=== PATIENT | female | born 1980 | race Caucasian/White ===

== ENCOUNTER 2016-04-11 17:37 | Emergency (ER) | payer OTHER ==
[~2016-04-11] VITALS: Ht 160 cm; Wt 52.4 kg
[~2016-04-11 17:37] MED LIST: AMBIEN10 MG PO; CALCIUM +D & M1 EAC1 PO; CALCIUM 500 +1 EACH PO; CELEBREX200 MG PO; CIPRO500 MG PO; CLONIDINE1 EACH TD; COUMADIN5 MG PO; CYANOCOBALAM1000 MCG PO; DESYREL12.5 MG; DILAUDID2 MG PO; DURAGESIC100 MCG TD; DURAGESIC25 MCG TD; DURAGESIC75 MCG TD; ETH-OXYDOS20 MG/1 ML PO; FENTANYL1 EAC4 TD; FLEXERIL10 MG PO; FLINTSTONES1 EACH PO; FLINTSTONES1 TABLET PO; FLUCONAZOLE200 MG PO; GABAPENTIN300 MG PO; GABAPENTIN800 MG PO; KONSYL PSYLLIU3.4 GM PO; LEVAQUIN750 MG PO; LEVO-T125 MCG PO; LORAZEPAM1 MG PO; LORTAB ELIXIR480 ML PO; LOVENOX40 MG/0.4 SC; Levothroid,Synthroid PO; Lomotil,Lonox PO; MARTINIC1 EACH PO; METHIMAZOLE5 MG PO; MORPHINE SULFAT15 MG PO; NEXIUM40 MG PO; NYSTOP60 GM; OXYCODONE H5 MG/5 ML PO; OXYCODONE HCL10 MG PO; OXYCONTIN10 MG PO; PERCOCET 5/31 TABLET PO; Potassium Chloride 1 PO; ROXICODONE5 MG/5 ML PO; SERTRALINE HCL50 MG; SYNTHROID125 MCG PO; TAPAZOLE5 MG PO; THERAGRAN1 TABLET PO; TPN IV; TRAMADOL HCL50 MG PO; TYLENOL EXTRA500 MG PO; Tylenol Liquid PO; Tylenol PO; VALIUM5 MG PO; VITAMIN B12-FO1 EACH PO; Vicodin,Lortab 5/500 PO; ZOFRAN ODT4 MG PO; ZOFRAN4 MG PO; ZOLPIDEM TARTRA10 MG PO; [UNRECOGNIZED DRUG - CODE] IV; [UNRECOGNIZED DRUG - OTHER] PO
[2016-04-11 22:20] LABS: INTER. NORMALIZED RATIO 2.3
[2016-04-11 22:41] LABS: CHLORIDE 109 mEq/L (99-109); POTASSIUM 3.3 mEq/L (3.7-5.4); SODIUM 142 mEq/L (136-147)
[2016-04-11 22:43] LABS: GLUCOSE 95 mg/dL (70-99)
[2016-04-11 22:44] LABS: ANION GAP 11 MEQ/L (2-14)
[2016-04-11 22:47] LABS: GFR ESTIMATE (CALCULATED) > 59 mL/min/
[2016-04-11 22:48] LABS: UREA NITROGEN (BUN) 6 mg/dL (9-23)
[2016-04-12] MEDS ORDERED: LOVENOX40 MG/0.4 SC (00:20)
[2016-04-12 00:31] VITALS: BP 128/73
== END 2016-04-12 00:46 | disposition home or self-care (01) ==
LOC: EME 17:37 → RME 17:37
PROVIDERS: Physician Assistant
DX: I82.621 Acute embolism and thrombosis of deep veins of right upper extremity (principal); Z86.718 Personal history of other venous thrombosis and embolism; Z88.6 Allergy status to analgesic agent
CPT/HCPCS: 80048; 85610; 93971; 99281; 99284; J1650

== ENCOUNTER 2016-04-14 17:51 | Inpatient (IN) | payer OTHER ==
[~2016-04-14] VITALS: Ht 160 cm; Wt 51.7 kg
[2016-04-14 19:48] LABS: HEMATOCRIT 28.4 % (36.0-46.0); MCH 28.6 PG (29.0-34.0); MCV 89.3 FL (83-99); MEAN PLAT.VOLUME 8.8 uM^3 (9.5-12.4); PLATELET COUNT 288 K/uL (156-360); RBC DIS.WIDTH-CV 14.5 % (11.8-14.6); RBC DIS.WIDTH-SD 45.1 % (39-53); RED BLOOD COUNT 3.18 M/uL (3.80-5.20)
[2016-04-14 19:59] LABS: CHLORIDE 109 mEq/L (99-109); SODIUM 143 mEq/L (136-147)
[2016-04-14 20:00] LABS: GLUCOSE 83 mg/dL (70-99)
[2016-04-14 20:02] LABS: ANION GAP 8 MEQ/L (2-14)
[2016-04-14 20:04] LABS: GFR ESTIMATE (CALCULATED) > 59 mL/min/
[2016-04-14 20:05] LABS: UREA NITROGEN (BUN) 9 mg/dL (9-23)
[2016-04-14 20:09] LABS: PROTHROMBIN TIME 46.8 (9.2-11.2)
[2016-04-14 20:10] LABS: INTER. NORMALIZED RATIO 4.4
[2016-04-14 20:24] LABS: WHITE BLOOD COUNT 6.7 K/uL (4.1-10.2)
[2016-04-14 21:50] LABS: C-REACTIVE PROTEIN 5.4 MG/L (0-10)
[2016-04-14] MEDS ORDERED: LOVENOX40 MG/0.4 SC (22:34)
[2016-04-14] MEDS ORDERED: COUMADIN5 MG PO (22:34)
[2016-04-14] MEDS ORDERED: AMBIEN10 MG PO (22:34)
[2016-04-15 07:41] LABS: HEMATOCRIT 26.8 % (36.0-46.0); MCH 28.6 PG (29.0-34.0); MCHC 31.7 G/DL (30.0-36.0); MCV 90.2 FL (83-99); MEAN PLAT.VOLUME 8.9 uM^3 (9.5-12.4); PLATELET COUNT 260 K/uL (156-360); RBC DIS.WIDTH-CV 14.6 % (11.8-14.6); RBC DIS.WIDTH-SD 45.4 % (39-53); RED BLOOD COUNT 2.97 M/uL (3.80-5.20); WHITE BLOOD COUNT 7.2 K/uL (4.1-10.2)
[2016-04-15 07:51] LABS: INTER. NORMALIZED RATIO 3.2
[2016-04-15 07:56] LABS: PROTHROMBIN TIME 33.5 (9.2-11.2)
[2016-04-15 08:13] LABS: ANION GAP 10 MEQ/L (2-14); CHLORIDE 107 MEQ/L (99-109); GFR ESTIMATE (CALCULATED) 54 mL/min/; GLUCOSE 84 mg/dL (70-99); POTASSIUM 3.5 MEQ/L (3.7-5.4); SAMPLE HEMOLYSIS CHECK 0; SAMPLE ICTERIC CHECK 0; SAMPLE LIPEMIA CHECK 0; SODIUM 142 MEQ/L (136-147); UREA NITROGEN (BUN) 9 mg/dL (9-23)
[2016-04-15 08:16] LABS: TROP-I INTERPRETATION NEGATIVE; TROPONIN-I < 0.01 ng/mL (0.0-0.30)
[2016-04-15 18:19] VITALS: BP 142/86
[2016-04-15 19:40] VITALS: BP 130/92
[2016-04-15 23:01] VITALS: BP 150/89
[2016-04-16] VITALS (7 sets, daily range): BP systolic 94–126; BP diastolic 57–82
[2016-04-16 08:03] LABS: INTER. NORMALIZED RATIO 2.1; PROTHROMBIN TIME 22.1 (9.2-11.2)
[2016-04-16 08:19] LABS: DIRECT BILIRUBIN 0.1 mg/dL (0.0-0.3); TOTAL BILIRUBIN 0.3 MG/DL (0.0-1.0)
[2016-04-16 08:24] LABS: ALKALINE PHOSPHATASE 62 IU/L (3-129)
[2016-04-16 08:25] LABS: EOSINOPHIL (%) 1.5 % (0-5); EOSINOPHIL COUNT 0.2 K/uL (0-0.3); HEMATOCRIT 24.8 % (36.0-46.0); IMMATURE GRANULOCYTE (%) 0.4 % (0.0-0.7); LYMPHOCYTE COUNT 0.6 K/uL (1.0-2.8); MCH 28.7 PG (29.0-34.0); MCHC 32.3 G/DL (30.0-36.0); MCV 88.9 FL (83-99); MONOCYTE (%) 5.6 % (3-12); MONOCYTE COUNT 0.6 K/uL (0-0.8); NEUTROPHIL COUNT 9.7 K/uL (1.8-6.4); RBC DIS.WIDTH-CV 15.3 % (11.8-14.6); RBC DIS.WIDTH-SD 49.1 % (39-53); RED BLOOD COUNT 2.79 M/uL (3.80-5.20)
[2016-04-16 08:37] LABS: WHITE BLOOD COUNT 11.2 K/uL (4.1-10.2)
[2016-04-16 10:07] LABS: ANION GAP 12 MEQ/L (2-14); CHLORIDE 108 MEQ/L (99-109); GFR ESTIMATE (CALCULATED) > 59 mL/min/; GLUCOSE 86 mg/dL (70-99); POTASSIUM 3.3 MEQ/L (3.7-5.4); SODIUM 141 MEQ/L (136-147); UREA NITROGEN (BUN) 8 mg/dL (9-23)
[2016-04-16 11:45] LABS: MEAN PLAT.VOLUME 9.9 uM^3 (9.5-12.4); PLAT.SUFFICIENCY ADEQUATE; PLATELET COUNT 204 K/uL (156-360); USER ID STC
[2016-04-17 03:00] VITALS: BP 146/77
[2016-04-17 07:48] LABS: INTER. NORMALIZED RATIO 1.7; PROTHROMBIN TIME 18.1 (9.2-11.2)
[2016-04-17 09:00] VITALS: BP 148/101
[2016-04-17 12:00] VITALS: BP 147/843
[2016-04-17 16:24] VITALS: BP 140/79
[2016-04-17 19:40] VITALS: BP 138/82
[2016-04-17 23:23] VITALS: BP 148/85
[2016-04-18 03:04] VITALS: BP 143/85
[2016-04-18 07:01] LABS: INTER. NORMALIZED RATIO 1.9; PROTHROMBIN TIME 19.9 (9.2-11.2)
[2016-04-18 07:57] VITALS: BP 129/74
[2016-04-18 12:53] VITALS: BP 133/70
[2016-04-18] MEDS ORDERED: MORPHINE SULFAT15 MG PO (13:12)
[2016-04-18] MEDS ORDERED: COUMADIN5 MG PO (13:12)
[2016-04-18] MEDS ORDERED: AUGMENTIN875 MG PO (13:12)
[2016-04-18 15:00] VITALS: BP 133/70
== END 2016-04-18 16:13 | disposition home or self-care (01) | DRG 314 ==
LOC: EME 17:51 → EDOF 23:04 → 5EAST 23:04
PROVIDERS: Internal Medicine; Internal Medicine Critical Care Medicine
DX: T80.211A Bloodstream infection due to central venous catheter, initial encounter (principal); A40.9 Streptococcal sepsis, unspecified; I26.90 Septic pulmonary embolism without acute cor pulmonale; I82.623 Acute embolism and thrombosis of deep veins of upper extremity, bilateral; I82.613 Acute embolism and thrombosis of superficial veins of upper extremity, bilateral; I82.723 Chronic embolism and thrombosis of deep veins of upper extremity, bilateral; T80.212A Local infection due to central venous catheter, initial encounter; T80.219A Unspecified infection due to central venous catheter, initial encounter; E83.51 Hypocalcemia; I80.8 Phlebitis and thrombophlebitis of other sites; R19.7 Diarrhea, unspecified; G89.4 Chronic pain syndrome; Z88.6 Allergy status to analgesic agent; Z98.84 Bariatric surgery status; Z88.5 Allergy status to narcotic agent; Z86.14 Personal history of Methicillin resistant Staphylococcus aureus infection; Z82.49 Family history of ischemic heart disease and other diseases of the circulatory system; Z83.3 Family history of diabetes mellitus; Z80.1 Family history of malignant neoplasm of trachea, bronchus and lung
CPT/HCPCS: 71020; 71275; 73200; 74176; 80048; 80076; 80202; 83605; 84484; 85025; 85027; 85610; 86140; 87040; 87801; 93306; 93971; 96365; 96366; 99281; 99284; 99285; J0692; J0696; J1170; J1580; J1650; J3370; J7030; J7050

== ENCOUNTER 2016-04-21 15:59 | Inpatient (IN) | payer OTHER ==
[~2016-04-21] VITALS: Ht 160 cm; Wt 50.0 kg
[~2016-04-21 15:59] MED LIST changes: +AUGMENTIN875 MG PO
[2016-04-21 17:23] LABS: BASOPHIL COUNT 0.1 K/uL (0-0.1); EOSINOPHIL (%) 2.8 % (0-5); EOSINOPHIL COUNT 0.2 K/uL (0-0.3); HEMATOCRIT 32.8 % (36.0-46.0); IMMATURE GRANULOCYTE (%) 0.1 % (0.0-0.7); IMMATURE GRANULOCYTE COUNT 0.1 K/uL; MCHC 31.7 G/DL (30.0-36.0); MCV 91.4 FL (83-99); MEAN PLAT.VOLUME 9.2 uM^3 (9.5-12.4); MONOCYTE COUNT 0.4 K/uL (0-0.8); NEUTROPHIL (%) 76.8 % (45-76); NEUTROPHIL COUNT 5.4 K/uL (1.8-6.4); PLATELET COUNT 310 K/uL (156-360); RBC DIS.WIDTH-CV 15.1 % (11.8-14.6); RED BLOOD COUNT 3.59 M/uL (3.80-5.20); WHITE BLOOD COUNT 7.1 K/uL (4.1-10.2)
[2016-04-21 17:30] LABS: CHLORIDE 114 mEq/L (99-109); SODIUM 140 mEq/L (136-147)
[2016-04-21 17:32] LABS: GLUCOSE 74 mg/dL (70-99); POTASSIUM 4.1 mEq/L (3.7-5.4)
[2016-04-21 17:33] LABS: INTER. NORMALIZED RATIO 2.9; PTT 36.6 (25-32)
[2016-04-21 17:34] LABS: ANION GAP 12 MEQ/L (2-14)
[2016-04-21 17:36] LABS: GFR ESTIMATE (CALCULATED) > 59 mL/min/
[2016-04-21 17:37] LABS: UREA NITROGEN (BUN) 14 mg/dL (9-23)
[2016-04-21 19:15] LABS: ADD MIUA? YES; BILIRUBIN NEGATIVE; BLOOD NEGATIVE; COLOR YELLOW ((YELLOW)); GLUCOSE (STRIP) NEGATIVE; KETONES NEGATIVE; LEUKOCYTES NEGATIVE; NITRITE NEGATIVE; PROTEIN (STRIP) 30; UROBILINOGEN 0.2 MG/DL (0.2-1.0)
[2016-04-21 19:59] LABS: CHLORIDE 116 mEq/L (99-109); POTASSIUM 3.8 mEq/L (3.7-5.4); SODIUM 140 mEq/L (136-147)
[2016-04-21 20:01] LABS: GLUCOSE 91 mg/dL (70-99)
[2016-04-21 20:03] LABS: ANION GAP 11 MEQ/L (2-14)
[2016-04-21 20:05] LABS: GFR ESTIMATE (CALCULATED) > 59 mL/min/
[2016-04-21 20:06] LABS: UREA NITROGEN (BUN) 15 mg/dL (9-23)
[2016-04-21 20:10] LABS: BACTERIA 3+; CASTS PRESENT /LPF; CRYSTALS PRESENT; EPITHELIAL CELLS 1+; HYALINE CASTS 0-5 /LPF; MUCUS RARE; RED BLOOD CELLS 0-5 /HPF (0-5); UCUL ADDED? YES
[2016-04-21 20:11] LABS: AMORPHOUS URATES CRYSTALS 2+
[2016-04-21] MEDS ORDERED: LEVO-T125 MCG PO (21:15)
[2016-04-21] MEDS ORDERED: DURAGESIC50 MCG TD (21:17)
[2016-04-22 00:44] LABS: C DIFF TOXIN NEGATIVE (NEGATIVE)
[2016-04-22 01:00] LABS: PROBE CHECK PASS; SPECIMEN PROCESSING CONTROL PASS
[2016-04-22 04:14] VITALS: BP 156/78
[2016-04-22 07:01] LABS: PROTHROMBIN TIME 31.1 (9.2-11.2)
[2016-04-22 07:09] LABS: HEMATOCRIT 26.6 % (36.0-46.0); MCH 28.4 PG (29.0-34.0); MCHC 31.2 G/DL (30.0-36.0); MCV 91.1 FL (83-99); RBC DIS.WIDTH-CV 15.3 % (11.8-14.6); RBC DIS.WIDTH-SD 51.3 % (39-53); RED BLOOD COUNT 2.92 M/uL (3.80-5.20)
[2016-04-22 07:19] LABS: WHITE BLOOD COUNT 4.9 K/uL (4.1-10.2)
[2016-04-22 07:24] LABS: ANION GAP 11 MEQ/L (2-14); CHLORIDE 116 MEQ/L (99-109); GFR ESTIMATE (CALCULATED) > 59 mL/min/; GLUCOSE 83 mg/dL (70-99); POTASSIUM 3.7 MEQ/L (3.7-5.4); SAMPLE HEMOLYSIS CHECK 0; SAMPLE ICTERIC CHECK 0; SAMPLE LIPEMIA CHECK 0; SODIUM 139 MEQ/L (136-147); UREA NITROGEN (BUN) 13 mg/dL (9-23)
[2016-04-22 08:25] VITALS: BP 139/67
[2016-04-22 08:29] LABS: MEAN PLAT.VOLUME 9.4 uM^3 (9.5-12.4)
[2016-04-22 08:42] LABS: PLATELET COUNT 213 K/uL (156-360)
[2016-04-22 12:50] VITALS: BP 127/66
[2016-04-22 17:13] VITALS: BP 159/78
[2016-04-22 19:35] VITALS: BP 161/76
[2016-04-23 00:20] VITALS: BP 125/70
[2016-04-23 05:29] LABS: INTER. NORMALIZED RATIO 3.6; PROTHROMBIN TIME 38.1 (9.2-11.2)
[2016-04-23 08:10] VITALS: BP 148/72
[2016-04-23 10:49] LABS: HEMATOCRIT 28.6 % (36.0-46.0); MCH 28.1 PG (29.0-34.0); MCHC 30.8 G/DL (30.0-36.0); MCV 91.4 FL (83-99); MEAN PLAT.VOLUME 9.7 uM^3 (9.5-12.4); PLATELET COUNT 210 K/uL (156-360); RBC DIS.WIDTH-CV 15.3 % (11.8-14.6); RBC DIS.WIDTH-SD 51.1 % (39-53); RED BLOOD COUNT 3.13 M/uL (3.80-5.20)
[2016-04-23 11:18] LABS: ANION GAP 9 MEQ/L (2-14); CHLORIDE 117 MEQ/L (99-109); GFR ESTIMATE (CALCULATED) > 59 mL/min/; GLUCOSE 76 mg/dL (70-99); POTASSIUM 3.4 MEQ/L (3.7-5.4); SAMPLE HEMOLYSIS CHECK 0; SAMPLE ICTERIC CHECK 0; SAMPLE LIPEMIA CHECK 0; SODIUM 139 MEQ/L (136-147); UREA NITROGEN (BUN) 9 mg/dL (9-23)
[2016-04-23 11:32] VITALS: BP 135/67
[2016-04-23 15:46] LABS: INTERNAL CONTROL VALID? YES
[2016-04-23 16:15] VITALS: BP 168/82
[2016-04-23 20:00] VITALS: BP 157/72
[2016-04-24] VITALS (8 sets, daily range): BP systolic 129–171; BP diastolic 56–90
[2016-04-24 07:33] LABS: INTER. NORMALIZED RATIO 3.4; PROTHROMBIN TIME 35.5 (9.2-11.2)
[2016-04-24 07:41] LABS: ANION GAP 9 MEQ/L (2-14); CHLORIDE 113 MEQ/L (99-109); GFR ESTIMATE (CALCULATED) > 59 mL/min/; SAMPLE HEMOLYSIS CHECK 0; SAMPLE ICTERIC CHECK 0; SAMPLE LIPEMIA CHECK 0; SODIUM 139 MEQ/L (136-147); UREA NITROGEN (BUN) 8 mg/dL (9-23)
[2016-04-24 07:53] LABS: GLUCOSE 101 mg/dL (70-99); POTASSIUM 2.7 MEQ/L (3.7-5.4)
[2016-04-25 04:00] VITALS: BP 129/71
[2016-04-25 07:28] VITALS: BP 138/67
[2016-04-25 07:38] LABS: PROTHROMBIN TIME 31.2 (9.2-11.2)
[2016-04-25 07:43] LABS: ANION GAP 8 MEQ/L (2-14); CHLORIDE 109 MEQ/L (99-109); GFR ESTIMATE (CALCULATED) > 59 mL/min/; GLUCOSE 92 mg/dL (70-99); POTASSIUM 2.6 MEQ/L (3.7-5.4); SAMPLE HEMOLYSIS CHECK 0; SAMPLE ICTERIC CHECK 0; SAMPLE LIPEMIA CHECK 0; SODIUM 140 MEQ/L (136-147); UREA NITROGEN (BUN) 9 mg/dL (9-23)
[2016-04-25 07:44] LABS: BASOPHIL COUNT 0.1 K/uL (0-0.1); EOSINOPHIL (%) 3.4 % (0-5); EOSINOPHIL COUNT 0.2 K/uL (0-0.3); HEMATOCRIT 27.4 % (36.0-46.0); IMMATURE GRANULOCYTE (%) 0.4 % (0.0-0.7); LYMPHOCYTE COUNT 1.1 K/uL (1.0-2.8); MCH 28.1 PG (29.0-34.0); MCHC 32.8 G/DL (30.0-36.0); MEAN PLAT.VOLUME 9.2 uM^3 (9.5-12.4); MONOCYTE (%) 9.6 % (3-12); MONOCYTE COUNT 0.5 K/uL (0-0.8); NEUTROPHIL COUNT 3.2 K/uL (1.8-6.4); PLATELET COUNT 201 K/uL (156-360); RBC DIS.WIDTH-CV 14.7 % (11.8-14.6); RBC DIS.WIDTH-SD 45.7 % (39-53)
[2016-04-25 07:50] LABS: MCV 85.6 FL (83-99)
[2016-04-25 10:51] LABS: ALKALINE PHOSPHATASE 63 IU/L (3-129); DIRECT BILIRUBIN 0.1 mg/dL (0.0-0.3); TOTAL BILIRUBIN 0.3 MG/DL (0.0-1.0)
[2016-04-25 10:52] LABS: MAGNESIUM 0.9 mg/dl (1.3-2.7)
[2016-04-25 11:25] VITALS: BP 129/74
[2016-04-25 15:30] VITALS: BP 123/75
[2016-04-25 19:30] VITALS: BP 136/64
[2016-04-25 22:35] LABS: ANION GAP 7 MEQ/L (2-14); CHLORIDE 108 MEQ/L (99-109); GFR ESTIMATE (CALCULATED) > 59 mL/min/; GLUCOSE 85 mg/dL (70-99); SAMPLE HEMOLYSIS CHECK 0; SAMPLE ICTERIC CHECK 0; SAMPLE LIPEMIA CHECK 0; SODIUM 139 MEQ/L (136-147); UREA NITROGEN (BUN) 12 mg/dL (9-23)
[2016-04-25 22:39] LABS: POTASSIUM 3.4 MEQ/L (3.7-5.4)
[2016-04-25 23:11] VITALS: BP 126/67
[2016-04-26 04:55] VITALS: BP 122/56
[2016-04-26 07:34] LABS: EOSINOPHIL (%) 4.5 % (0-5); EOSINOPHIL COUNT 0.2 K/uL (0-0.3); IMMATURE GRANULOCYTE (%) 0.2 % (0.0-0.7); LYMPHOCYTE COUNT 0.9 K/uL (1.0-2.8); MCH 28.4 PG (29.0-34.0); MCHC 32.5 G/DL (30.0-36.0); MCV 87.5 FL (83-99); MEAN PLAT.VOLUME 9.4 uM^3 (9.5-12.4); MONOCYTE (%) 10.8 % (3-12); MONOCYTE COUNT 0.5 K/uL (0-0.8); NEUTROPHIL (%) 61.7 % (45-76); NEUTROPHIL COUNT 2.6 K/uL (1.8-6.4); PLATELET COUNT 231 K/uL (156-360); RBC DIS.WIDTH-CV 15.2 % (11.8-14.6); WHITE BLOOD COUNT 4.3 K/uL (4.1-10.2)
[2016-04-26 07:46] LABS: INTER. NORMALIZED RATIO 2.2; PROTHROMBIN TIME 22.6 (9.2-11.2)
[2016-04-26 08:05] VITALS: BP 150/71
[2016-04-26 08:09] LABS: ALKALINE PHOSPHATASE 69 IU/L (3-129); ANION GAP 9 MEQ/L (2-14); CHLORIDE 111 MEQ/L (99-109); GFR ESTIMATE (CALCULATED) > 59 mL/min/; GLUCOSE 90 mg/dL (70-99); POTASSIUM 3.9 MEQ/L (3.7-5.4); SAMPLE HEMOLYSIS CHECK 0; SAMPLE ICTERIC CHECK 0; SAMPLE LIPEMIA CHECK 0; SODIUM 142 MEQ/L (136-147); TOTAL BILIRUBIN 0.3 MG/DL (0.0-1.0); UREA NITROGEN (BUN) 12 mg/dL (9-23)
[2016-04-26 08:10] LABS: MAGNESIUM 1.6 mg/dl (1.3-2.7)
[2016-04-26 10:46] LABS: ABSOLUTE RETICULOCYTE CT. 0.06 M/uL (0.02-0.08); IMM.RETIC FRACTION 7.3 % (3-19); RETICULOCYTE COUNT 1.8 % (0.5-1.8)
[2016-04-26 11:09] LABS: IRON 29 MCG/DL (35-150)
[2016-04-26 12:45] VITALS: BP 151/74
[2016-04-26 13:27] LABS: FERRITIN 175 NG/ML (10-291)
[2016-04-26] MEDS ORDERED: PEN-VEE K,VEET500 MG PO (14:09)
[2016-04-26] MEDS ORDERED: LOPERAMIDE2 MG PO (14:10)
[2016-04-26] MEDS ORDERED: KONSYL PSYLLIU3.4 GM PO (14:11)
[2016-04-26] MEDS ORDERED: Vitamin B-12 SL (14:11)
[2016-04-26] MEDS ORDERED: FENTANYL1 EAC2 TD (14:11)
== END 2016-04-26 15:51 | disposition home or self-care (01) | DRG 640 ==
LOC: EME 15:59 → EDOF 22:01 → 4SOUTH 22:01 → EDOF 22:01 → 4SOUTH 04-22 04:06 → 2EAST 04-22 11:07 → 4SOUTH 04-22 11:07 → 2EAST 04-24 21:00
PROVIDERS: Emergency Medicine; Hospitalist; Internal Medicine; Internal Medicine Nephrology; Student in an Organized Health Care Education/Training Program
DX: E87.2 Acidosis (principal); I33.0 Acute and subacute infective endocarditis; K52.1 Toxic gastroenteritis and colitis; I76 Septic arterial embolism; E46 Unspecified protein-calorie malnutrition; Z68.1 Body mass index [BMI] 19.9 or less, adult; E03.9 Hypothyroidism, unspecified; E87.6 Hypokalemia; T36.0X5A Adverse effect of penicillins, initial encounter; Z79.01 Long term (current) use of anticoagulants; Z98.84 Bariatric surgery status; E83.42 Hypomagnesemia; G89.4 Chronic pain syndrome; Z88.5 Allergy status to narcotic agent; D64.9 Anemia, unspecified; Z88.6 Allergy status to analgesic agent; Z82.49 Family history of ischemic heart disease and other diseases of the circulatory system; Z83.3 Family history of diabetes mellitus; Z80.1 Family history of malignant neoplasm of trachea, bronchus and lung
CPT/HCPCS: 36600; 71020; 74176; 80048; 80048 91; 80053; 80069; 80076; 81003; 82436; 82607; 82728; 82746; 82803; 83540; 83605; 83630; 83735; 84133; 84300; 84466; 85025; 85027; 85045; 85610; 85730; 87086; 87177; 87493; 87506; 99281; 99285; G0378; J0696; J2270; J3475; J3480; J7030; J7050; J7060; J7070; J7120

== ENCOUNTER 2016-04-30 10:39 | Emergency (ER) | payer OTHER ==
[~2016-04-30] VITALS: Ht 160 cm; Wt 45.9 kg
[~2016-04-30 10:39] MED LIST changes: +DURAGESIC50 MCG TD; +FENTANYL1 EAC2 TD; +LOPERAMIDE2 MG PO; +PEN-VEE K,VEET500 MG PO; +Vitamin B-12 SL
[2016-04-30 11:16] LABS: HEMATOCRIT 36.5 % (36.0-46.0); MCH 28.8 PG (29.0-34.0); MCHC 33.2 G/DL (30.0-36.0); MCV 86.9 FL (83-99); MEAN PLAT.VOLUME 8.6 uM^3 (9.5-12.4); PLATELET COUNT 268 K/uL (156-360); RBC DIS.WIDTH-SD 47.2 % (39-53); WHITE BLOOD COUNT 5.3 K/uL (4.1-10.2)
[2016-04-30 11:31] LABS: CHLORIDE 106 mEq/L (99-109); POTASSIUM 3.4 mEq/L (3.7-5.4); SODIUM 138 mEq/L (136-147)
[2016-04-30 11:33] LABS: GLUCOSE 86 mg/dL (70-99)
[2016-04-30 11:35] LABS: ANION GAP 14 MEQ/L (2-14)
[2016-04-30 11:43] LABS: GFR ESTIMATE (CALCULATED) 54 mL/min/; UREA NITROGEN (BUN) 21 mg/dL (9-23)
[2016-04-30 11:52] LABS: D-DIMER ELISA 0.42 mg/L FEU (< 0.57); INTER. NORMALIZED RATIO 1.7; PTT 34.1 (25-32)
[2016-04-30 12:01] LABS: TROP-I INTERPRETATION NEGATIVE; TROPONIN-I < 0.01 ng/mL (0.0-0.30)
[2016-04-30 12:47] VITALS: BP 132/85
== END 2016-04-30 13:04 | disposition home or self-care (01) ==
LOC: EME 10:39
PROVIDERS: Emergency Medicine
DX: R07.9 Chest pain, unspecified (principal); J06.9 Acute upper respiratory infection, unspecified; E03.9 Hypothyroidism, unspecified; Z98.84 Bariatric surgery status
CPT/HCPCS: 71020; 80048; 84484; 85027; 85379; 85610; 85730; 93005; 99281; 99284

== ENCOUNTER 2016-05-01 04:57 | Emergency (ER) | payer OTHER ==
[~2016-05-01] VITALS: Ht 160 cm; Wt 48.4 kg
[2016-05-01 06:28] LABS: HEMATOCRIT 31.6 % (36.0-46.0); MCH 29.1 PG (29.0-34.0); MCHC 33.5 G/DL (30.0-36.0); MCV 86.8 FL (83-99); MEAN PLAT.VOLUME 8.8 uM^3 (9.5-12.4); PLATELET COUNT 285 K/uL (156-360); RBC DIS.WIDTH-CV 14.9 % (11.8-14.6); RBC DIS.WIDTH-SD 45.7 % (39-53); RED BLOOD COUNT 3.64 M/uL (3.80-5.20); WHITE BLOOD COUNT 6.3 K/uL (4.1-10.2)
[2016-05-01 06:40] LABS: CHLORIDE 113 mEq/L (99-109); POTASSIUM 3.2 mEq/L (3.7-5.4); SODIUM 138 mEq/L (136-147)
[2016-05-01 06:43] LABS: GLUCOSE 92 mg/dL (70-99)
[2016-05-01 06:44] LABS: ANION GAP 9 MEQ/L (2-14); TOTAL BILIRUBIN 0.5 mg/dL (0.0-1.0)
[2016-05-01 06:46] LABS: ALKALINE PHOSPHATASE 68 IU/L (3-129); GFR ESTIMATE (CALCULATED) > 59 mL/min/
[2016-05-01 06:47] LABS: UREA NITROGEN (BUN) 17 mg/dL (9-23)
[2016-05-01 06:50] LABS: CREATINE KINASE 25 IU/L (1-294); LIPASE 41 U/L (1.0-51.0); TOTAL CK 25 IU/L (1-294)
[2016-05-01 06:52] LABS: BILIRUBIN NEGATIVE; COLOR YELLOW ((YELLOW)); GLUCOSE (STRIP) NEGATIVE; KETONES NEGATIVE; LEUKOCYTES NEGATIVE; NITRITE NEGATIVE; PROTEIN (STRIP) 30; SPECIFIC GRAVITY 1.024 (1.000-1.030); UROBILINOGEN 0.2 MG/DL (0.2-1.0)
[2016-05-01 06:53] LABS: ADD MIUA? NO; BLOOD NEGATIVE; UCUL ADDED? NO
[2016-05-01 06:56] LABS: CK-MB 0.9 ng/mL (0.0-4.9)
[2016-05-01 10:08] VITALS: BP 122/88
== END 2016-05-01 10:43 | disposition home or self-care (01) ==
LOC: EME 04:57
PROVIDERS: Emergency Medicine
DX: R11.10 Vomiting, unspecified (principal); R19.7 Diarrhea, unspecified; E87.6 Hypokalemia; E03.9 Hypothyroidism, unspecified; Z98.84 Bariatric surgery status
CPT/HCPCS: 74022; 80053; 81003; 82550; 82553; 82803; 83690; 85027; 99281; 99285; J2270; J2405; J7030

== ENCOUNTER 2016-05-08 13:07 | Emergency (ER) | payer OTHER ==
[~2016-05-08] VITALS: Ht 160 cm; Wt 44.3 kg
[2016-05-08 15:00] LABS: MCH 28.5 PG (29.0-34.0); MCHC 33.8 G/DL (30.0-36.0); MCV 84.2 FL (83-99); MEAN PLAT.VOLUME 9.4 uM^3 (9.5-12.4); PLATELET COUNT 297 K/uL (156-360); RBC DIS.WIDTH-CV 14.9 % (11.8-14.6); RBC DIS.WIDTH-SD 45.1 % (39-53); RED BLOOD COUNT 4.04 M/uL (3.80-5.20); WHITE BLOOD COUNT 7.4 K/uL (4.1-10.2)
[2016-05-08 15:13] LABS: INTER. NORMALIZED RATIO 1.2; PTT 29.4 (25-32)
[2016-05-08 15:22] LABS: CHLORIDE 112 mEq/L (99-109); POTASSIUM 4.7 mEq/L (3.7-5.4); SODIUM 135 mEq/L (136-147)
[2016-05-08 15:24] LABS: GLUCOSE 94 mg/dL (70-99); TROP-I INTERPRETATION NEGATIVE; TROPONIN-I < 0.01 ng/mL (0.0-0.30)
[2016-05-08 15:26] LABS: ANION GAP 9 MEQ/L (2-14); TOTAL BILIRUBIN 0.4 mg/dL (0.0-1.0)
[2016-05-08 15:28] LABS: ALKALINE PHOSPHATASE 74 IU/L (3-129); GFR ESTIMATE (CALCULATED) 54 mL/min/
[2016-05-08 15:29] LABS: UREA NITROGEN (BUN) 15 mg/dL (9-23)
[2016-05-08 15:36] LABS: QUANTITATIVE HCG < 4.0 MIU/ML
[2016-05-08 17:28] LABS: D-DIMER ELISA 0.56 mg/L FEU (< 0.57)
[2016-05-08 20:34] LABS: CHLORIDE 114 mEq/L (99-109); SODIUM 138 mEq/L (136-147)
[2016-05-08 20:36] LABS: GLUCOSE 106 mg/dL (70-99)
[2016-05-08 20:38] LABS: ANION GAP 9 MEQ/L (2-14)
[2016-05-08 20:40] LABS: GFR ESTIMATE (CALCULATED) > 59 mL/min/
[2016-05-08 20:41] LABS: UREA NITROGEN (BUN) 14 mg/dL (9-23)
[2016-05-08 21:30] VITALS: BP 144/97
== END 2016-05-08 21:42 | disposition home or self-care (01) ==
LOC: EME 13:07
PROVIDERS: Emergency Medicine; Nurse Practitioner Family
DX: R07.89 Other chest pain (principal); G89.4 Chronic pain syndrome; E03.9 Hypothyroidism, unspecified; Z98.84 Bariatric surgery status
CPT/HCPCS: 71020; 80048 91; 80053; 81003; 84484; 84702; 85027; 85379; 85610; 85730; 93005; 99281; 99285; J2270; J2405; J7030

== ENCOUNTER 2016-05-14 14:54 | Inpatient (IN) | payer OTHER ==
[~2016-05-14] VITALS: Ht 160 cm; Wt 45.2 kg
[2016-05-14 15:34] LABS: BASOPHIL COUNT 0.1 K/uL (0-0.1); EOSINOPHIL (%) 0.6 % (0-5); EOSINOPHIL COUNT 0.1 K/uL (0-0.3); HEMATOCRIT 36.5 % (36.0-46.0); IMMATURE GRANULOCYTE (%) 0.2 % (0.0-0.7); IMMATURE GRANULOCYTE COUNT 0.2 K/uL; LYMPHOCYTE COUNT 1.1 K/uL (1.0-2.8); MCH 28.3 PG (29.0-34.0); MCHC 33.2 G/DL (30.0-36.0); MCV 85.3 FL (83-99); MEAN PLAT.VOLUME 8.8 uM^3 (9.5-12.4); MONOCYTE (%) 3.1 % (3-12); MONOCYTE COUNT 0.3 K/uL (0-0.8); NEUTROPHIL (%) 84.7 % (45-76); NEUTROPHIL COUNT 8.9 K/uL (1.8-6.4); PLATELET COUNT 270 K/uL (156-360); RBC DIS.WIDTH-CV 14.9 % (11.8-14.6); RBC DIS.WIDTH-SD 45.1 % (39-53); RED BLOOD COUNT 4.28 M/uL (3.80-5.20)
[2016-05-14 15:41] LABS: CHLORIDE 116 mEq/L (99-109); POTASSIUM 2.7 mEq/L (3.7-5.4); SODIUM 139 mEq/L (136-147)
[2016-05-14 15:43] LABS: GLUCOSE 116 mg/dL (70-99); WHITE BLOOD COUNT 10.5 K/uL (4.1-10.2)
[2016-05-14 15:44] LABS: ANION GAP 10 MEQ/L (2-14)
[2016-05-14 15:46] LABS: TOTAL BILIRUBIN 0.3 mg/dL (0.0-1.0)
[2016-05-14 15:47] LABS: ALKALINE PHOSPHATASE 79 IU/L (3-129); GFR ESTIMATE (CALCULATED) 45 mL/min/
[2016-05-14 15:50] LABS: LIPASE 41 U/L (1.0-51.0)
[2016-05-14 15:53] LABS: UREA NITROGEN (BUN) 23 mg/dL (9-23)
[2016-05-14 15:56] LABS: QUANTITATIVE HCG < 4.0 MIU/ML
[2016-05-14 16:10] LABS: ADD MIUA? YES; BILIRUBIN NEGATIVE; BLOOD SMALL; COLOR YELLOW ((YELLOW)); GLUCOSE (STRIP) NEGATIVE; KETONES NEGATIVE; LEUKOCYTES NEGATIVE; NITRITE NEGATIVE; PROTEIN (STRIP) 100; SPECIFIC GRAVITY 1.028 (1.000-1.030); UROBILINOGEN 0.2 MG/DL (0.2-1.0)
[2016-05-14 16:40] LABS: AMORPHOUS URATES CRYSTALS 2+; BACTERIA RARE /HPF; CASTS NONE SEEN /LPF; CRYSTALS PRESENT; EPITHELIAL CELLS 1+ /HPF; MUCUS NONE SEEN /LPF; RED BLOOD CELLS NONE SEEN /HPF (0-5); WHITE BLOOD CELLS NONE SEEN /HPF (0-5)
[2016-05-14 16:41] LABS: CALCIUM OXALATE CRYSTALS RARE /HPF
[2016-05-14] MEDS ORDERED: CYANOCOBALAM1000 MCG PO (19:10)
[2016-05-14] MEDS ORDERED: QUESTRAN PACKET4 GM PO (19:10)
[2016-05-14 21:32] LABS: INTER. NORMALIZED RATIO 1.2; PROTHROMBIN TIME 12.4 (9.2-11.2)
[2016-05-14 21:33] VITALS: BP 149/88
[2016-05-14 23:10] VITALS: BP 131/85
[2016-05-15 03:40] VITALS: BP 121/71
[2016-05-15 07:20] LABS: HEMATOCRIT 30.9 % (36.0-46.0); MCH 28.2 PG (29.0-34.0); MCHC 32.7 G/DL (30.0-36.0); MCV 86.3 FL (83-99); RBC DIS.WIDTH-CV 15.2 % (11.8-14.6); RED BLOOD COUNT 3.58 M/uL (3.80-5.20); WHITE BLOOD COUNT 10.2 K/uL (4.1-10.2)
[2016-05-15 07:44] LABS: ALKALINE PHOSPHATASE 56 IU/L (3-129); ANION GAP 11 MEQ/L (2-14); CHLORIDE 113 MEQ/L (99-109); GFR ESTIMATE (CALCULATED) > 59 mL/min/; GLUCOSE 138 mg/dL (70-99); SAMPLE HEMOLYSIS CHECK 0; SAMPLE ICTERIC CHECK 0; SAMPLE LIPEMIA CHECK 0; SODIUM 137 MEQ/L (136-147); TOTAL BILIRUBIN 0.2 MG/DL (0.0-1.0); UREA NITROGEN (BUN) 15 mg/dL (9-23)
[2016-05-15 07:48] LABS: POTASSIUM 3.3 MEQ/L (3.7-5.4)
[2016-05-15 08:00] VITALS: BP 121/77
[2016-05-15 08:07] LABS: MEAN PLAT.VOLUME 9.4 uM^3 (9.5-12.4)
[2016-05-15 08:08] LABS: PLATELET COUNT 186 K/uL (156-360)
[2016-05-15 08:15] LABS: INTERNAL CONTROL VALID? YES
[2016-05-15 08:30] LABS: MAGNESIUM 1.1 mg/dl (1.3-2.7)
[2016-05-15 08:32] LABS: C DIFF TOXIN NEGATIVE (NEGATIVE)
[2016-05-15 08:33] LABS: PROBE CHECK PASS; SPECIMEN PROCESSING CONTROL PASS
[2016-05-15 10:00] LABS: INTER. NORMALIZED RATIO 1.3; PROTHROMBIN TIME 13.2 (9.2-11.2)
[2016-05-15 12:00] VITALS: BP 134/71
[2016-05-15 13:11] LABS: ANION GAP 12 MEQ/L (2-14); CHLORIDE 114 MEQ/L (99-109); GFR ESTIMATE (CALCULATED) > 59 mL/min/; GLUCOSE 146 mg/dL (70-99); POTASSIUM 3.3 MEQ/L (3.7-5.4); SAMPLE HEMOLYSIS CHECK 0; SAMPLE ICTERIC CHECK 0; SAMPLE LIPEMIA CHECK 0; SODIUM 139 MEQ/L (136-147); UREA NITROGEN (BUN) 15 mg/dL (9-23)
[2016-05-15 16:00] VITALS: BP 134/71
[2016-05-15 18:36] LABS: CHLORIDE 117 mEq/L (99-109); POTASSIUM 2.9 mEq/L (3.7-5.4); SODIUM 140 mEq/L (136-147)
[2016-05-15 18:38] LABS: GLUCOSE 151 mg/dL (70-99)
[2016-05-15 18:39] LABS: ANION GAP 7 MEQ/L (2-14)
[2016-05-15 18:41] LABS: GFR ESTIMATE (CALCULATED) 50 mL/min/
[2016-05-15 18:42] LABS: UREA NITROGEN (BUN) 13 mg/dL (9-23)
[2016-05-15 19:19] VITALS: BP 114/60
[2016-05-15 23:20] VITALS: BP 128/78
[2016-05-16 03:24] VITALS: BP 131/85
[2016-05-16 07:30] VITALS: BP 131/83
[2016-05-16 07:39] LABS: EOSINOPHIL (%) 0.3 % (0-5); IMMATURE GRANULOCYTE (%) 0.3 % (0.0-0.7); LYMPHOCYTE COUNT 1.6 K/uL (1.0-2.8); MCH 28.3 PG (29.0-34.0); MCHC 33.1 G/DL (30.0-36.0); MCV 85.5 FL (83-99); MEAN PLAT.VOLUME 9.5 uM^3 (9.5-12.4); MONOCYTE (%) 5.1 % (3-12); MONOCYTE COUNT 0.5 K/uL (0-0.8); NEUTROPHIL (%) 77.9 % (45-76); NEUTROPHIL COUNT 7.9 K/uL (1.8-6.4); PLATELET COUNT 174 K/uL (156-360); RBC DIS.WIDTH-CV 15.4 % (11.8-14.6); RBC DIS.WIDTH-SD 47.5 % (39-53); RED BLOOD COUNT 3.39 M/uL (3.80-5.20); WHITE BLOOD COUNT 10.2 K/uL (4.1-10.2)
[2016-05-16 07:52] LABS: PROTHROMBIN TIME 20.7 (9.2-11.2)
[2016-05-16 08:37] LABS: ANION GAP 7 MEQ/L (2-14); CHLORIDE 108 MEQ/L (99-109); GFR ESTIMATE (CALCULATED) > 59 mL/min/; GLUCOSE 83 mg/dL (70-99); POTASSIUM 2.7 MEQ/L (3.7-5.4); SAMPLE HEMOLYSIS CHECK 0; SAMPLE ICTERIC CHECK 0; SAMPLE LIPEMIA CHECK 0; SODIUM 140 MEQ/L (136-147); UREA NITROGEN (BUN) 11 mg/dL (9-23)
[2016-05-16 08:53] LABS: MAGNESIUM 1.2 mg/dl (1.3-2.7)
[2016-05-16 11:46] VITALS: BP 140/74
[2016-05-16 15:30] VITALS: BP 122/76
[2016-05-16 19:04] VITALS: BP 135/65
[2016-05-16 23:54] VITALS: BP 131/79
[2016-05-17 03:44] VITALS: BP 118/79
[2016-05-17 07:14] LABS: PROTHROMBIN TIME 20.9 (9.2-11.2)
[2016-05-17 07:18] LABS: CARBON DIOXIDE (BICARBONATE) 30.4 MEQ/L (20-31)
[2016-05-17 07:37] LABS: ANION GAP 7 MEQ/L (2-14); CHLORIDE 106 MEQ/L (99-109); GFR ESTIMATE (CALCULATED) 54 mL/min/; GLUCOSE 82 mg/dL (70-99); POTASSIUM 3.1 MEQ/L (3.7-5.4); SAMPLE HEMOLYSIS CHECK 0; SAMPLE ICTERIC CHECK 0; SAMPLE LIPEMIA CHECK 0; SODIUM 139 MEQ/L (136-147); UREA NITROGEN (BUN) 8 mg/dL (9-23)
[2016-05-17 08:00] VITALS: BP 143/81
[2016-05-17 12:00] VITALS: BP 136/76
[2016-05-17 16:00] VITALS: BP 152/93
[2016-05-17 19:21] VITALS: BP 142/74
[2016-05-17 23:11] VITALS: BP 136/68
[2016-05-18 03:56] VITALS: BP 110/72
[2016-05-18 07:10] VITALS: BP 134/80
[2016-05-18 07:26] LABS: PROTHROMBIN TIME 20.9 (9.2-11.2)
[2016-05-18 07:49] LABS: ANION GAP 7 MEQ/L (2-14); CHLORIDE 106 MEQ/L (99-109); GFR ESTIMATE (CALCULATED) > 59 mL/min/; GLUCOSE 83 mg/dL (70-99); POTASSIUM 3.7 MEQ/L (3.7-5.4); SAMPLE HEMOLYSIS CHECK 0; SAMPLE ICTERIC CHECK 0; SAMPLE LIPEMIA CHECK 0; SODIUM 139 MEQ/L (136-147); UREA NITROGEN (BUN) 8 mg/dL (9-23)
[2016-05-18 07:50] LABS: MAGNESIUM 1.6 mg/dl (1.3-2.7)
[2016-05-18 09:20] VITALS: BP 140/87
[2016-05-18] MEDS ORDERED: NABI650T PO (14:51)
[2016-05-18] MEDS ORDERED: K-DUR20 MEQ PO (14:52)
[2016-05-18] MEDS ORDERED: ERGOCALCIF50000 UNIT PO ×2 (15:00→16:12)
[2016-05-18 15:28] VITALS: BP 116/66
[2016-05-18] MEDS ORDERED: Slow-Mag,Mag Delay PO (16:12)
== END 2016-05-18 16:15 | disposition home or self-care (01) | DRG 392 ==
LOC: EME 14:54 → 2EAST 20:22 → EDOF 20:22 → 2EAST 21:22
PROVIDERS: Hospitalist; Internal Medicine; Physician Assistant; Specialist
PROC: 0DJD8ZZ Inspection of Lower Intestinal Tract, Via Natural or Artificial Opening Endoscopic (ICD-10-PCS; principal; 2016-05-18)
PROC: 0DBB8ZX Excision of Ileum, Via Natural or Artificial Opening Endoscopic, Diagnostic (ICD-10-PCS; principal; 2016-05-18)
PROC: 0DBE8ZX Excision of Large Intestine, Via Natural or Artificial Opening Endoscopic, Diagnostic (ICD-10-PCS; principal; 2016-05-18)
DX: K52.9 Noninfective gastroenteritis and colitis, unspecified (principal); E87.2 Acidosis; N17.9 Acute kidney failure, unspecified; K91.89 Other postprocedural complications and disorders of digestive system; R19.7 Diarrhea, unspecified; E87.6 Hypokalemia; E46 Unspecified protein-calorie malnutrition; Z68.1 Body mass index [BMI] 19.9 or less, adult; D64.9 Anemia, unspecified; K64.8 Other hemorrhoids; E86.0 Dehydration; E03.9 Hypothyroidism, unspecified; I07.9 Rheumatic tricuspid valve disease, unspecified; G89.4 Chronic pain syndrome; E83.42 Hypomagnesemia; E83.39 Other disorders of phosphorus metabolism; F11.10 Opioid abuse, uncomplicated; E55.9 Vitamin D deficiency, unspecified; Z86.718 Personal history of other venous thrombosis and embolism; Z79.01 Long term (current) use of anticoagulants; Z98.84 Bariatric surgery status; Z90.49 Acquired absence of other specified parts of digestive tract
CPT/HCPCS: 74020; 74177; 80048 91; 80053; 80069; 81003; 82306; 82330; 82803; 83516 90; 83605; 83630; 83690; 83735; 84443; 84702; 85025; 85027; 85610; 85730; 87040; 87177; 87329; 87493; 87506; 88305; 89125; 99281; 99285; C9113; J0744; J1650; J2270; J2405; J2930; J3010; J3475; J7030; J7040; J7070; J7120; S0030

== ENCOUNTER 2016-05-30 14:56 | Inpatient (IN) | payer OTHER ==
[~2016-05-30] VITALS: Ht 160 cm; Wt 47.2 kg
[~2016-05-30 14:56] MED LIST changes: +ERGOCALCIF50000 UNIT PO; +K-DUR20 MEQ PO; +NABI650T PO; +QUESTRAN PACKET4 GM PO; +Slow-Mag,Mag Delay PO
[2016-05-30 15:39] LABS: CHLORIDE 116 mEq/L (99-109); SODIUM 143 mEq/L (136-147)
[2016-05-30 15:41] LABS: GLUCOSE 64 mg/dL (70-99)
[2016-05-30 15:43] LABS: ANION GAP 8 MEQ/L (2-14); TOTAL BILIRUBIN 0.2 mg/dL (0.0-1.0)
[2016-05-30 15:45] LABS: ALKALINE PHOSPHATASE 66 IU/L (3-129); GFR ESTIMATE (CALCULATED) 50 mL/min/
[2016-05-30 15:46] LABS: UREA NITROGEN (BUN) 13 mg/dL (9-23)
[2016-05-30 15:48] LABS: LIPASE 11 U/L (1.0-51.0)
[2016-05-30 15:49] LABS: HEMATOCRIT 36.9 % (36.0-46.0); MCH 28.4 PG (29.0-34.0); MCHC 32.5 G/DL (30.0-36.0); MCV 87.4 FL (83-99); MEAN PLAT.VOLUME 9.4 uM^3 (9.5-12.4); PLATELET COUNT 215 K/uL (156-360); RBC DIS.WIDTH-CV 14.9 % (11.8-14.6); RBC DIS.WIDTH-SD 46.8 % (39-53); RED BLOOD COUNT 4.22 M/uL (3.80-5.20); WHITE BLOOD COUNT 7.3 K/uL (4.1-10.2)
[2016-05-30 15:56] LABS: ADD MIUA? YES; BILIRUBIN NEGATIVE; BLOOD MODERATE; COLOR YELLOW ((YELLOW)); GLUCOSE (STRIP) NEGATIVE; KETONES NEGATIVE; LEUKOCYTES NEGATIVE; NITRITE NEGATIVE; PROTEIN (STRIP) 100; SPECIFIC GRAVITY 1.021 (1.000-1.030); UROBILINOGEN 0.2 MG/DL (0.2-1.0)
[2016-05-30 16:15] LABS: BACTERIA RARE /HPF; EPITHELIAL CELLS 1+ /HPF; MUCUS TRACE /LPF; UCUL ADDED? NO; WHITE BLOOD CELLS 0-5 /HPF (0-5)
[2016-05-30 18:54] LABS: INTER. NORMALIZED RATIO 1.1; PROTHROMBIN TIME 11.5 (9.2-11.2); PTT 29.1 (25-32)
[2016-05-30] MEDS ORDERED: MORPHINE SULFAT15 MG PO (21:48)
[2016-05-30] MEDS ORDERED: POTASSIUM CHLO20 ME2 PO (21:49)
[2016-05-30] MEDS ORDERED: SLOW-MAG,MAG DE64 MG PO (21:50)
[2016-05-30] MEDS ORDERED: ERGOCALCIF50000 UNIT PO (21:52)
[2016-05-30 22:46] VITALS: BP 139/86
[2016-05-31 00:23] VITALS: BP 130/77
[2016-05-31 07:51] VITALS: BP 101/62
[2016-05-31 08:25] LABS: INTER. NORMALIZED RATIO 1.2; PROTHROMBIN TIME 11.9 (9.2-11.2); PTT 46.9 (25-32)
[2016-05-31 12:00] VITALS: BP 119/71
[2016-05-31 14:44] LABS: C DIFF TOXIN NEGATIVE (NEGATIVE)
[2016-05-31 14:49] LABS: PROBE CHECK PASS; SPECIMEN PROCESSING CONTROL PASS
[2016-05-31 16:50] VITALS: BP 102/62
[2016-05-31 20:30] VITALS: BP 97/59
[2016-06-01 00:03] VITALS: BP 104/63
[2016-06-01 04:23] VITALS: BP 124/83
[2016-06-01 06:52] LABS: HEMATOCRIT 32.7 % (36.0-46.0); MCH 27.6 PG (29.0-34.0); MCHC 31.5 G/DL (30.0-36.0); MCV 87.7 FL (83-99); RBC DIS.WIDTH-CV 14.9 % (11.8-14.6); RED BLOOD COUNT 3.73 M/uL (3.80-5.20)
[2016-06-01 07:07] LABS: INTER. NORMALIZED RATIO 1.4; PROTHROMBIN TIME 14.1 (9.2-11.2); PTT 52.7 (25-32)
[2016-06-01 07:09] LABS: WHITE BLOOD COUNT 5.1 K/uL (4.1-10.2)
[2016-06-01 07:28] LABS: ANION GAP 7 MEQ/L (2-14); CHLORIDE 111 MEQ/L (99-109); GFR ESTIMATE (CALCULATED) > 59 mL/min/; GLUCOSE 80 mg/dL (70-99); POTASSIUM 3.2 MEQ/L (3.7-5.4); SAMPLE HEMOLYSIS CHECK 0; SAMPLE ICTERIC CHECK 0; SAMPLE LIPEMIA CHECK 0; SODIUM 140 MEQ/L (136-147); UREA NITROGEN (BUN) 8 mg/dL (9-23)
[2016-06-01 08:00] VITALS: BP 136/81
[2016-06-01 08:17] LABS: PLATELET COUNT 139 K/uL (156-360)
[2016-06-01 11:42] VITALS: BP 126/75
[2016-06-01 16:30] VITALS: BP 108/76
[2016-06-01 20:18] VITALS: BP 117/76
[2016-06-02] VITALS: BP 135/74
[2016-06-02 04:12] VITALS: BP 115/80
[2016-06-02 06:24] LABS: INTER. NORMALIZED RATIO 1.6; PROTHROMBIN TIME 16.7 (9.2-11.2); PTT 46.7 (25-32)
[2016-06-02 08:02] VITALS: BP 122/67
[2016-06-02 11:25] VITALS: BP 105/70
[2016-06-02 15:32] VITALS: BP 121/78
[2016-06-02 20:16] VITALS: BP 144/72
[2016-06-02 22:37] LABS: INTER. NORMALIZED RATIO 1.9; PROTHROMBIN TIME 19.8 (9.2-11.2)
[2016-06-03 00:45] VITALS: BP 120/74
[2016-06-03 03:43] VITALS: BP 124/70
[2016-06-03 07:24] LABS: EOSINOPHIL (%) 1.4 % (0-5); EOSINOPHIL COUNT 0.1 K/uL (0-0.3); HEMATOCRIT 33.8 % (36.0-46.0); IMMATURE GRANULOCYTE (%) 0.4 % (0.0-0.7); LYMPHOCYTE COUNT 0.5 K/uL (1.0-2.8); MCH 28.5 PG (29.0-34.0); MCHC 32.8 G/DL (30.0-36.0); MCV 86.7 FL (83-99); MEAN PLAT.VOLUME 9.1 uM^3 (9.5-12.4); MONOCYTE (%) 10.2 % (3-12); MONOCYTE COUNT 0.5 K/uL (0-0.8); NEUTROPHIL (%) 77.4 % (45-76); NEUTROPHIL COUNT 3.9 K/uL (1.8-6.4); PLATELET COUNT 150 K/uL (156-360); RBC DIS.WIDTH-CV 14.8 % (11.8-14.6); RBC DIS.WIDTH-SD 46.9 % (39-53); WHITE BLOOD COUNT 5.1 K/uL (4.1-10.2)
[2016-06-03 07:33] LABS: INTER. NORMALIZED RATIO 1.9; PROTHROMBIN TIME 20.1 (9.2-11.2)
[2016-06-03 07:47] LABS: ANION GAP 8 MEQ/L (2-14); CHLORIDE 106 MEQ/L (99-109); GFR ESTIMATE (CALCULATED) > 59 mL/min/; GLUCOSE 91 mg/dL (70-99); SAMPLE HEMOLYSIS CHECK 0; SAMPLE ICTERIC CHECK 0; SAMPLE LIPEMIA CHECK 0; SODIUM 140 MEQ/L (136-147); UREA NITROGEN (BUN) 6 mg/dL (9-23)
[2016-06-03 08:00] VITALS: BP 131/89
[2016-06-03] MEDS ORDERED: XARELTO15 MG PO (08:27)
[2016-06-03] MEDS ORDERED: FENTANYL1 EAC2 TD (08:27)
[2016-06-03 11:23] VITALS: BP 121/81
== END 2016-06-03 15:23 | disposition home or self-care (01) | DRG 176 ==
LOC: EME 14:56 → EDOF 21:35 → 4SOUTH 21:35
PROVIDERS: Hospitalist; Internal Medicine; Physician Assistant
DX: I26.99 Other pulmonary embolism without acute cor pulmonale (principal); E46 Unspecified protein-calorie malnutrition; R19.7 Diarrhea, unspecified; G89.4 Chronic pain syndrome; E03.9 Hypothyroidism, unspecified; D64.9 Anemia, unspecified; N28.1 Cyst of kidney, acquired; Z68.1 Body mass index [BMI] 19.9 or less, adult; Z98.84 Bariatric surgery status; Z79.891 Long term (current) use of opiate analgesic; Z90.49 Acquired absence of other specified parts of digestive tract; Z86.718 Personal history of other venous thrombosis and embolism; Z79.01 Long term (current) use of anticoagulants; Z91.14 Patient's other noncompliance with medication regimen
CPT/HCPCS: 71275; 74177; 80048; 80053; 81003; 83690; 85025; 85027; 85610; 85730; 87493; 93005; 99281; 99285; J2405; J7030; S0030

== ENCOUNTER 2016-06-08 10:55 | Emergency (ER) | payer OTHER ==
[~2016-06-08] VITALS: Ht 160 cm; Wt 48.0 kg
[~2016-06-08 10:55] MED LIST changes: +POTASSIUM CHLO20 ME2 PO; +SLOW-MAG,MAG DE64 MG PO; +XARELTO15 MG PO
[2016-06-08 11:01] VITALS: BP 129/88
[2016-06-08] MEDS ORDERED: WARFARIN SODIUM5 MG PO (12:49)
[2016-06-08 15:50] LABS: BASOPHIL COUNT 0.1 K/uL (0-0.1); EOSINOPHIL (%) 1.2 % (0-5); EOSINOPHIL COUNT 0.1 K/uL (0-0.3); HEMATOCRIT 35.8 % (36.0-46.0); IMMATURE GRANULOCYTE (%) 0.1 % (0.0-0.7); IMMATURE GRANULOCYTE COUNT 0.1 K/uL; LYMPHOCYTE COUNT 0.9 K/uL (1.0-2.8); MCH 28.8 PG (29.0-34.0); MCV 87.3 FL (83-99); MEAN PLAT.VOLUME 8.7 uM^3 (9.5-12.4); MONOCYTE (%) 5.4 % (3-12); MONOCYTE COUNT 0.4 K/uL (0-0.8); NEUTROPHIL (%) 81.7 % (45-76); NEUTROPHIL COUNT 6.6 K/uL (1.8-6.4); RBC DIS.WIDTH-CV 14.3 % (11.8-14.6); RBC DIS.WIDTH-SD 44.8 % (39-53)
[2016-06-08 15:54] LABS: INTER. NORMALIZED RATIO 1.3; PROTHROMBIN TIME 13.2 (9.2-11.2)
[2016-06-08 15:56] LABS: PLATELET COUNT 224 K/uL (156-360); WHITE BLOOD COUNT 8.1 K/uL (4.1-10.2)
[2016-06-08 15:57] LABS: CHLORIDE 102 mEq/L (99-109); POTASSIUM 3.5 mEq/L (3.7-5.4); SODIUM 134 mEq/L (136-147)
[2016-06-08 15:59] LABS: GLUCOSE 87 mg/dL (70-99)
[2016-06-08 16:01] LABS: ANION GAP 11 MEQ/L (2-14); TOTAL BILIRUBIN 0.7 mg/dL (0.0-1.0)
[2016-06-08 16:03] LABS: ALKALINE PHOSPHATASE 86 IU/L (3-129); GFR ESTIMATE (CALCULATED) 54 mL/min/
[2016-06-08 16:04] LABS: UREA NITROGEN (BUN) 15 mg/dL (9-23)
== END 2016-06-08 17:08 | disposition left against medical advice (07) ==
LOC: EME 10:55 → EXP 10:55
PROVIDERS: Physician Assistant
DX: S93.401A Sprain of unspecified ligament of right ankle, initial encounter (principal); X58.XXXA Exposure to other specified factors, initial encounter; Z79.01 Long term (current) use of anticoagulants; M79.661 Pain in right lower leg; Z86.711 Personal history of pulmonary embolism; Z86.718 Personal history of other venous thrombosis and embolism; E03.9 Hypothyroidism, unspecified
CPT/HCPCS: 73610; 80053; 85025; 85610; 93971; 99281; 99284

== ENCOUNTER 2016-06-16 17:26 | Observation (INO) | payer OTHER ==
[~2016-06-16] VITALS: Ht 160 cm; Wt 48.7 kg
[~2016-06-16 17:26] MED LIST changes: +WARFARIN SODIUM5 MG PO
[2016-06-16 18:27] LABS: HEMATOCRIT 44.6 % (36.0-46.0); MCH 28.4 PG (29.0-34.0); MCHC 33.2 G/DL (30.0-36.0); MCV 85.6 FL (83-99); PLATELET COUNT 282 K/uL (156-360); RBC DIS.WIDTH-CV 13.6 % (11.8-14.6); RBC DIS.WIDTH-SD 42.7 % (39-53); WHITE BLOOD COUNT 9.7 K/uL (4.1-10.2)
[2016-06-16 18:39] LABS: RED BLOOD COUNT 5.21 M/uL (3.80-5.20)
[2016-06-16 18:47] LABS: CHLORIDE 110 mEq/L (99-109); POTASSIUM 3.4 mEq/L (3.7-5.4); SODIUM 139 mEq/L (136-147)
[2016-06-16 18:48] LABS: GLUCOSE 70 mg/dL (70-99)
[2016-06-16 18:50] LABS: ANION GAP 13 MEQ/L (2-14)
[2016-06-16 18:52] LABS: GFR ESTIMATE (CALCULATED) 34 mL/min/
[2016-06-16 18:53] LABS: UREA NITROGEN (BUN) 20 mg/dL (9-23)
[2016-06-16] MEDS ORDERED: DURAGESIC50 MCG TD (19:01)
[2016-06-16] MEDS ORDERED: COUMADIN1 MG PO (19:01)
[2016-06-16 19:17] LABS: INTER. NORMALIZED RATIO 1.1; PROTHROMBIN TIME 11.7 (9.2-11.2)
[2016-06-16 19:27] LABS: QUANTITATIVE HCG < 4.0 MIU/ML
[2016-06-16 21:05] LABS: TROP-I INTERPRETATION NEGATIVE; TROPONIN-I < 0.01 ng/mL (0.0-0.30)
[2016-06-17 00:47] LABS: PTT 30.6 (25-32)
[2016-06-17 03:23] LABS: TROP-I INTERPRETATION NEGATIVE; TROPONIN-I < 0.01 ng/mL (0.0-0.30)
[2016-06-17 04:11] VITALS: BP 152/89
[2016-06-17 07:52] LABS: HEMATOCRIT 38.9 % (36.0-46.0); MCHC 32.1 G/DL (30.0-36.0); MEAN PLAT.VOLUME 9.2 uM^3 (9.5-12.4); PLATELET COUNT 239 K/uL (156-360); RBC DIS.WIDTH-CV 13.8 % (11.8-14.6); RBC DIS.WIDTH-SD 44.1 % (39-53); RED BLOOD COUNT 4.47 M/uL (3.80-5.20); WHITE BLOOD COUNT 9.2 K/uL (4.1-10.2)
[2016-06-17 08:00] LABS: PTT 40.6 (25-32)
[2016-06-17 08:05] VITALS: BP 117/85
[2016-06-17 08:16] LABS: ALKALINE PHOSPHATASE 58 IU/L (3-129); ANION GAP 8 MEQ/L (2-14); CHLORIDE 111 MEQ/L (99-109); POTASSIUM 3.8 MEQ/L (3.7-5.4); SAMPLE HEMOLYSIS CHECK 0; SAMPLE ICTERIC CHECK 0; SAMPLE LIPEMIA CHECK 0; SODIUM 138 MEQ/L (136-147); TOTAL BILIRUBIN 0.4 MG/DL (0.0-1.0); UREA NITROGEN (BUN) 18 mg/dL (9-23)
[2016-06-17 08:23] LABS: TROP-I INTERPRETATION NEGATIVE; TROPONIN-I < 0.01 ng/mL (0.0-0.30)
[2016-06-17 08:27] LABS: GFR ESTIMATE (CALCULATED) 50 mL/min/; GLUCOSE 93 mg/dL (70-99)
[2016-06-17 09:04] LABS: INTER. NORMALIZED RATIO 1.2
[2016-06-17 11:51] VITALS: BP 127/87
[2016-06-17] MEDS ORDERED: XARELTO15 MG PO (12:54)
[2016-06-17] MEDS ORDERED: XARELTO20 MG PO (15:11)
[2016-06-17 15:45] VITALS: BP 121/77
== END 2016-06-17 17:39 | disposition home or self-care (01) ==
LOC: EME 17:26 → EDOF 06-17 01:58 → 5WEST 06-17 03:51
PROVIDERS: Emergency Medicine; Internal Medicine
DX: R07.9 Chest pain, unspecified (principal); N17.9 Acute kidney failure, unspecified; Z91.120 Patient's intentional underdosing of medication regimen due to financial hardship; T45.516A Underdosing of anticoagulants, initial encounter; F11.20 Opioid dependence, uncomplicated; E46 Unspecified protein-calorie malnutrition; G89.4 Chronic pain syndrome; M54.9 Dorsalgia, unspecified; D64.9 Anemia, unspecified; E03.9 Hypothyroidism, unspecified; Z86.711 Personal history of pulmonary embolism; Z86.718 Personal history of other venous thrombosis and embolism
CPT/HCPCS: 71020; 78582; 80048; 80053; 84484; 84702; 85027; 85610; 85730; 93005; 99281; 99285; A9540; A9567; G0378; J3010; J7030; J7040; S0028

== ENCOUNTER 2016-06-23 17:18 | Emergency (ER) | payer OTHER ==
[~2016-06-23] VITALS: Ht 160 cm; Wt 49.6 kg
[~2016-06-23 17:18] MED LIST changes: +COUMADIN1 MG PO; +XARELTO20 MG PO
[2016-06-23 18:15] LABS: HEMATOCRIT 37.8 % (36.0-46.0); MCH 28.2 PG (29.0-34.0); MCHC 31.7 G/DL (30.0-36.0); MCV 88.7 FL (83-99); PLATELET COUNT 209 K/uL (156-360); RBC DIS.WIDTH-CV 13.6 % (11.8-14.6); RBC DIS.WIDTH-SD 43.9 % (39-53); RED BLOOD COUNT 4.26 M/uL (3.80-5.20)
[2016-06-23 18:17] LABS: WHITE BLOOD COUNT 5.7 K/uL (4.1-10.2)
[2016-06-23 18:25] LABS: CHLORIDE 112 mEq/L (99-109); POTASSIUM 3.2 mEq/L (3.7-5.4); SODIUM 139 mEq/L (136-147)
[2016-06-23 18:27] LABS: GLUCOSE 59 mg/dL (70-99)
[2016-06-23 18:28] LABS: ANION GAP 9 MEQ/L (2-14)
[2016-06-23 18:29] LABS: TOTAL BILIRUBIN 0.2 mg/dL (0.0-1.0)
[2016-06-23 18:31] LABS: ALKALINE PHOSPHATASE 61 IU/L (3-129); GFR ESTIMATE (CALCULATED) > 59 mL/min/
[2016-06-23 18:32] LABS: UREA NITROGEN (BUN) 12 mg/dL (9-23)
[2016-06-23 18:34] LABS: LIPASE 18 U/L (1.0-51.0)
[2016-06-23 22:12] LABS: INTER. NORMALIZED RATIO 1.1; PROTHROMBIN TIME 11.3 (9.2-11.2); PTT 22.7 (25-32)
[2016-06-23 23:45] VITALS: BP 149/103
== END 2016-06-23 23:47 | disposition short-term general hospital (02) ==
LOC: EME 17:18
PROVIDERS: Emergency Medicine
DX: K56.60 Unspecified intestinal obstruction (principal); E03.9 Hypothyroidism, unspecified; Z86.718 Personal history of other venous thrombosis and embolism; Z86.711 Personal history of pulmonary embolism
CPT/HCPCS: 74177; 80053; 83690; 85027; 85610; 85730; 86850; 86900; 86901; 99281; 99285; J2270

== ENCOUNTER 2016-06-26 14:55 | Emergency (ER) | payer OTHER ==
[~2016-06-26] VITALS: Ht 162.6 cm; Wt 50.6 kg
[2016-06-26 15:42] LABS: HEMATOCRIT 41.4 % (36.0-46.0); MCH 28.1 PG (29.0-34.0); MCHC 31.9 G/DL (30.0-36.0); MCV 88.3 FL (83-99); MEAN PLAT.VOLUME 9.4 uM^3 (9.5-12.4); PLATELET COUNT 216 K/uL (156-360); RBC DIS.WIDTH-CV 13.5 % (11.8-14.6); RBC DIS.WIDTH-SD 43.6 % (39-53); RED BLOOD COUNT 4.69 M/uL (3.80-5.20); WHITE BLOOD COUNT 6.4 K/uL (4.1-10.2)
[2016-06-26 15:53] LABS: CHLORIDE 112 mEq/L (99-109); SODIUM 139 mEq/L (136-147)
[2016-06-26 15:57] LABS: ANION GAP 10 MEQ/L (2-14)
[2016-06-26 15:59] LABS: ALKALINE PHOSPHATASE 68 IU/L (3-129); GFR ESTIMATE (CALCULATED) 54 mL/min/
[2016-06-26 16:00] LABS: UREA NITROGEN (BUN) 11 mg/dL (9-23)
[2016-06-26 16:03] LABS: LIPASE 16 U/L (1.0-51.0)
[2016-06-26 16:31] LABS: GLUCOSE 90 mg/dL (70-99); TOTAL BILIRUBIN 0.4 mg/dL (0.0-1.0)
[2016-06-26 16:59] LABS: INTER. NORMALIZED RATIO 1.2; PROTHROMBIN TIME 11.8 (9.2-11.2); PTT 31.7 (25-32)
[2016-06-26 19:13] VITALS: BP 120/88
== END 2016-06-26 19:17 | disposition home or self-care (01) ==
LOC: EME 14:55
PROVIDERS: Nurse Practitioner Family
DX: R10.32 Left lower quadrant pain (principal); R10.12 Left upper quadrant pain; R10.13 Epigastric pain; K59.39 Other megacolon; G89.29 Other chronic pain; J45.909 Unspecified asthma, uncomplicated; E03.9 Hypothyroidism, unspecified; Z98.84 Bariatric surgery status; Z86.711 Personal history of pulmonary embolism
CPT/HCPCS: 74000; 80053; 83605; 83690; 85027; 85610; 85730; 99281; 99285; J2405; J3010; J7030

== ENCOUNTER 2016-06-27 13:09 | Emergency (ER) | payer OTHER ==
[~2016-06-27] VITALS: Ht 160 cm; Wt 51.6 kg
[2016-06-27 13:43] LABS: HEMATOCRIT 39.5 % (36.0-46.0); MCH 27.9 PG (29.0-34.0); MCHC 30.9 G/DL (30.0-36.0); MCV 90.4 FL (83-99); PLATELET COUNT 173 K/uL (156-360); RBC DIS.WIDTH-CV 13.7 % (11.8-14.6); RBC DIS.WIDTH-SD 45.7 % (39-53); RED BLOOD COUNT 4.37 M/uL (3.80-5.20); WHITE BLOOD COUNT 6.4 K/uL (4.1-10.2)
[2016-06-27 13:55] LABS: CHLORIDE 115 mEq/L (99-109); POTASSIUM 3.7 mEq/L (3.7-5.4); SODIUM 143 mEq/L (136-147)
[2016-06-27 13:57] LABS: GLUCOSE 86 mg/dL (70-99)
[2016-06-27 13:58] LABS: ANION GAP 9 MEQ/L (2-14)
[2016-06-27 13:59] LABS: TOTAL BILIRUBIN 0.2 mg/dL (0.0-1.0)
[2016-06-27 14:00] LABS: ALKALINE PHOSPHATASE 65 IU/L (3-129)
[2016-06-27 14:01] LABS: GFR ESTIMATE (CALCULATED) 50 mL/min/
[2016-06-27 14:02] LABS: UREA NITROGEN (BUN) 9 mg/dL (9-23)
[2016-06-27 14:14] LABS: QUANTITATIVE HCG < 4.0 MIU/ML
[2016-06-27 17:57] LABS: ADD MIUA? YES; BILIRUBIN NEGATIVE; BLOOD SMALL; COLOR YELLOW ((YELLOW)); GLUCOSE (STRIP) NEGATIVE; KETONES NEGATIVE; LEUKOCYTES NEGATIVE; NITRITE NEGATIVE; PROTEIN (STRIP) 30; SPECIFIC GRAVITY 1.017 (1.000-1.030); UROBILINOGEN 0.2 MG/DL (0.2-1.0)
[2016-06-27 18:03] LABS: BACTERIA NONE SEEN /HPF; CALCIUM OXALATE CRYSTALS 3+ /HPF; EPITHELIAL CELLS 1+ /HPF; HYALINE CASTS 0-5 /LPF; MUCUS NONE SEEN /LPF; RED BLOOD CELLS 0-5 /HPF (0-5); UCUL ADDED? NO; WHITE BLOOD CELLS 0-5 /HPF (0-5)
[2016-06-27 21:45] VITALS: BP 147/88
== END 2016-06-27 21:54 | disposition home or self-care (01) ==
LOC: EME 13:09
DX: R19.7 Diarrhea, unspecified (principal); R10.31 Right lower quadrant pain; Z98.84 Bariatric surgery status; J45.909 Unspecified asthma, uncomplicated; E03.9 Hypothyroidism, unspecified; Z86.718 Personal history of other venous thrombosis and embolism; Z86.711 Personal history of pulmonary embolism; Z90.49 Acquired absence of other specified parts of digestive tract; Z88.5 Allergy status to narcotic agent; Z88.6 Allergy status to analgesic agent
CPT/HCPCS: 74177; 80053; 81003; 84702; 85027; 99281; 99284; J2270

== ENCOUNTER 2016-06-29 13:57 | Inpatient (IN) | payer OTHER ==
[~2016-06-29] VITALS: Ht 160 cm; Wt 48.5 kg
[2016-06-29 14:54] LABS: HEMATOCRIT 41.2 % (36.0-46.0); MCH 28.4 PG (29.0-34.0); MCHC 32.3 G/DL (30.0-36.0); MCV 87.8 FL (83-99); MEAN PLAT.VOLUME 8.7 uM^3 (9.5-12.4); PLATELET COUNT 206 K/uL (156-360); RBC DIS.WIDTH-CV 13.6 % (11.8-14.6); RBC DIS.WIDTH-SD 43.8 % (39-53); RED BLOOD COUNT 4.69 M/uL (3.80-5.20); WHITE BLOOD COUNT 8.1 K/uL (4.1-10.2)
[2016-06-29 15:15] LABS: CHLORIDE 111 mEq/L (99-109); SODIUM 141 mEq/L (136-147)
[2016-06-29 15:17] LABS: GLUCOSE 101 mg/dL (70-99)
[2016-06-29 15:18] LABS: ANION GAP 12 MEQ/L (2-14)
[2016-06-29 15:20] LABS: ALKALINE PHOSPHATASE 68 IU/L (3-129)
[2016-06-29 15:21] LABS: GFR ESTIMATE (CALCULATED) 45 mL/min/
[2016-06-29 15:22] LABS: UREA NITROGEN (BUN) 12 mg/dL (9-23)
[2016-06-29 15:39] LABS: TOTAL BILIRUBIN 0.3 mg/dL (0.0-1.0)
[2016-06-29 18:40] LABS: ADD MIUA? YES; BILIRUBIN NEGATIVE; BLOOD SMALL; COLOR YELLOW ((YELLOW)); GLUCOSE (STRIP) NEGATIVE; KETONES NEGATIVE; LEUKOCYTES NEGATIVE; NITRITE NEGATIVE; PROTEIN (STRIP) 30; SPECIFIC GRAVITY 1.015 (1.000-1.030); UROBILINOGEN 0.2 MG/DL (0.2-1.0)
[2016-06-29 18:53] LABS: BACTERIA NONE SEEN /HPF; CALCIUM OXALATE CRYSTALS 3+ /HPF; EPITHELIAL CELLS 1+ /HPF; HYALINE CASTS 0-5 /LPF; MUCUS TRACE /LPF; RED BLOOD CELLS 0-5 /HPF (0-5); UCUL ADDED? NO; WHITE BLOOD CELLS 0-5 /HPF (0-5)
[2016-06-29] MEDS ORDERED: DURAGESIC75 MCG TD (20:13)
[2016-06-29] MEDS ORDERED: CYMBALTA20 MG PO (20:15)
[2016-06-29] MEDS ORDERED: FLINTSTONES1 EACH PO (20:15)
[2016-06-29] MEDS ORDERED: PAMELOR25 MG PO (20:15)
[2016-06-29 22:46] VITALS: BP 148/94
[2016-06-30 06:43] LABS: EOSINOPHIL (%) 0 % (0-5); IMMATURE GRANULOCYTE (%) 0.6 % (0.0-0.7); IMMATURE GRANULOCYTE COUNT 0.1 K/uL; INSTRUMENT ABS NEUTROPHIL CT 9.1 K/uL; MCH 28.2 PG (29.0-34.0); MCV 88.1 FL (83-99); MEAN PLAT.VOLUME 9.2 uM^3 (9.5-12.4); MONOCYTE (%) 1.8 % (3-12); MONOCYTE COUNT 0.2 K/uL (0-0.8); NEUTROPHIL (%) 87.5 % (45-76); NEUTROPHIL COUNT 9.1 K/uL (1.8-6.4); PLATELET COUNT 213 K/uL (156-360); RBC DIS.WIDTH-CV 13.7 % (11.8-14.6); RBC DIS.WIDTH-SD 44.3 % (39-53); RED BLOOD COUNT 4.54 M/uL (3.80-5.20); WHITE BLOOD COUNT 10.4 K/uL (4.1-10.2)
[2016-06-30 07:03] LABS: ANION GAP 13 MEQ/L (2-14); CHLORIDE 108 MEQ/L (99-109); GFR ESTIMATE (CALCULATED) > 59 mL/min/; GLUCOSE 97 mg/dL (70-99); SAMPLE HEMOLYSIS CHECK 0; SAMPLE ICTERIC CHECK 0; SAMPLE LIPEMIA CHECK 0; SODIUM 140 MEQ/L (136-147); UREA NITROGEN (BUN) 14 mg/dL (9-23)
[2016-06-30 07:08] LABS: POTASSIUM 4.1 MEQ/L (3.7-5.4)
[2016-06-30 07:32] VITALS: BP 123/82
[2016-06-30 10:19] VITALS: BP 128/87
[2016-06-30 17:10] VITALS: BP 97/60
[2016-06-30 20:56] LABS: AMPHETAMINES QUANT VALUE 0 NG/ML; BARBITUATES QUANT VALUE 0 NG/ML; BENZODIAZEPINES QUANT VALUE 0 NG/ML; BENZODIAZEPINES, URINE SCREEN Negative (200 ng/mL); MARIJUANA QUANT VALUE 0 NG/ML; PHENCYCLIDINE QUANT VALUE 0 NG/ML
[2016-06-30 22:47] VITALS: BP 114/69
[2016-07-01 03:34] VITALS: BP 130/84
[2016-07-01 07:36] LABS: BASOPHIL COUNT 0.1 K/uL (0-0.1); EOSINOPHIL (%) 0 % (0-5); HEMATOCRIT 32.1 % (36.0-46.0); IMMATURE GRANULOCYTE (%) 0.3 % (0.0-0.7); INSTRUMENT ABS NEUTROPHIL CT 5.5 K/uL; LYMPHOCYTE COUNT 1.4 K/uL (1.0-2.8); MCH 28.8 PG (29.0-34.0); MCHC 31.8 G/DL (30.0-36.0); MCV 90.7 FL (83-99); MONOCYTE (%) 5.2 % (3-12); MONOCYTE COUNT 0.4 K/uL (0-0.8); NEUTROPHIL (%) 75.3 % (45-76); NEUTROPHIL COUNT 5.5 K/uL (1.8-6.4); RBC DIS.WIDTH-CV 14.2 % (11.8-14.6); RBC DIS.WIDTH-SD 46.8 % (39-53); WHITE BLOOD COUNT 7.3 K/uL (4.1-10.2)
[2016-07-01 07:39] LABS: ANION GAP 10 MEQ/L (2-14); CHLORIDE 113 MEQ/L (99-109); POTASSIUM 4.1 MEQ/L (3.7-5.4); SAMPLE HEMOLYSIS CHECK 0; SAMPLE ICTERIC CHECK 0; SAMPLE LIPEMIA CHECK 0; SODIUM 143 MEQ/L (136-147)
[2016-07-01 07:43] LABS: RED BLOOD COUNT 3.54 M/uL (3.80-5.20)
[2016-07-01 07:45] LABS: GFR ESTIMATE (CALCULATED) 54 mL/min/; GLUCOSE 81 mg/dL (70-99); UREA NITROGEN (BUN) 17 mg/dL (9-23)
[2016-07-01 08:24] VITALS: BP 139/92
[2016-07-01 09:36] LABS: MEAN PLAT.VOLUME 9.5 uM^3 (9.5-12.4)
[2016-07-01 12:26] VITALS: BP 150/89
[2016-07-01 19:40] VITALS: BP 153/84
[2016-07-01 23:02] VITALS: BP 149/77
[2016-07-02 02:55] VITALS: BP 148/89
[2016-07-02 06:56] LABS: HEMATOCRIT 36.5 % (36.0-46.0); MCH 28.1 PG (29.0-34.0); MCHC 31.5 G/DL (30.0-36.0); MCV 89.2 FL (83-99); MEAN PLAT.VOLUME 9.2 uM^3 (9.5-12.4); PLATELET COUNT 163 K/uL (156-360); RBC DIS.WIDTH-CV 13.7 % (11.8-14.6); RBC DIS.WIDTH-SD 44.9 % (39-53); RED BLOOD COUNT 4.09 M/uL (3.80-5.20); WHITE BLOOD COUNT 5.4 K/uL (4.1-10.2)
[2016-07-02 07:18] VITALS: BP 136/99
[2016-07-02 07:36] LABS: ANION GAP 10 MEQ/L (2-14); CHLORIDE 107 MEQ/L (99-109); GFR ESTIMATE (CALCULATED) > 59 mL/min/; POTASSIUM 3.7 MEQ/L (3.7-5.4); SAMPLE HEMOLYSIS CHECK 0; SAMPLE ICTERIC CHECK 0; SAMPLE LIPEMIA CHECK 0; SODIUM 138 MEQ/L (136-147); UREA NITROGEN (BUN) 10 mg/dL (9-23)
[2016-07-02 07:38] LABS: GLUCOSE 109 mg/dL (70-99)
[2016-07-02 10:50] VITALS: BP 128/82
[2016-07-02 15:57] VITALS: BP 102/74
[2016-07-02 23:25] VITALS: BP 116/71
[2016-07-03 03:43] VITALS: BP 110/65
[2016-07-03 07:14] LABS: ANION GAP 8 MEQ/L (2-14); CHLORIDE 107 MEQ/L (99-109); GFR ESTIMATE (CALCULATED) > 59 mL/min/; GLUCOSE 99 mg/dL (70-99); POTASSIUM 4.3 MEQ/L (3.7-5.4); PREALBUMIN 20.7 mg/dL (10-40); SAMPLE HEMOLYSIS CHECK 0; SAMPLE ICTERIC CHECK 0; SAMPLE LIPEMIA CHECK 0; SODIUM 139 MEQ/L (136-147); UREA NITROGEN (BUN) 7 mg/dL (9-23)
[2016-07-03 07:23] VITALS: BP 124/58
[2016-07-03 11:32] VITALS: BP 129/75
[2016-07-03 16:16] VITALS: BP 115/75
[2016-07-03 16:44] LABS: HEMATOCRIT 40.6 % (36.0-46.0); MCH 27.9 PG (29.0-34.0); MCHC 31.5 G/DL (30.0-36.0); MCV 88.6 FL (83-99); MEAN PLAT.VOLUME 9.6 uM^3 (9.5-12.4); PLATELET COUNT 115 K/uL (156-360); RBC DIS.WIDTH-CV 13.9 % (11.8-14.6); RBC DIS.WIDTH-SD 45.1 % (39-53); RED BLOOD COUNT 4.58 M/uL (3.80-5.20); WHITE BLOOD COUNT 6.4 K/uL (4.1-10.2)
[2016-07-03 19:50] VITALS: BP 120/77
[2016-07-04 00:21] VITALS: BP 94/54
[2016-07-04 04:10] VITALS: BP 100/50
[2016-07-04 07:08] VITALS: BP 96/57
[2016-07-04] MEDS ORDERED: LOVENOX40 MG/0.4 SC (15:03)
[2016-07-04] MEDS ORDERED: LEVOTHYROXINE100 MC1 IV (15:04)
[2016-07-04 17:02] VITALS: BP 120/68
[2016-07-04 19:23] VITALS: BP 118/74
[2016-07-04 22:17] VITALS: BP 125/79
[2016-07-05 02:37] VITALS: BP 115/73
[2016-07-05 07:15] VITALS: BP 120/68
[2016-07-05 08:21] LABS: HEMATOCRIT 35.1 % (36.0-46.0); MCH 27.7 PG (29.0-34.0); MCHC 31.1 G/DL (30.0-36.0); MCV 89.3 FL (83-99); PLATELET COUNT 120 K/uL (156-360); RBC DIS.WIDTH-CV 13.4 % (11.8-14.6); RBC DIS.WIDTH-SD 44.3 % (39-53); RED BLOOD COUNT 3.93 M/uL (3.80-5.20); WHITE BLOOD COUNT 6.1 K/uL (4.1-10.2)
[2016-07-05 08:38] LABS: ALKALINE PHOSPHATASE 121 IU/L (3-129); ANION GAP 9 MEQ/L (2-14); CHLORIDE 102 MEQ/L (99-109); GFR ESTIMATE (CALCULATED) > 59 mL/min/; POTASSIUM 4.7 MEQ/L (3.7-5.4); SAMPLE HEMOLYSIS CHECK 0; SAMPLE ICTERIC CHECK 0; SAMPLE LIPEMIA CHECK 0; SODIUM 136 MEQ/L (136-147); TOTAL BILIRUBIN 0.8 MG/DL (0.0-1.0); UREA NITROGEN (BUN) 13 mg/dL (9-23)
[2016-07-05 08:42] LABS: GLUCOSE 67 mg/dL (70-99)
[2016-07-05 11:59] VITALS: BP 120/71
[2016-07-05] MEDS ORDERED: ONDANSETRON4 MG/2 ML IV (15:04)
== END 2016-07-05 16:20 | disposition short-term general hospital (02) | DRG 388 ==
LOC: EME 13:57 → 5EAST 21:06 → EDOF 21:06 → 5EAST 22:41
PROVIDERS: Hospitalist; Nurse Practitioner Family
PROC: 5A12012 Performance of Cardiac Output, Single, Manual (ICD-10-PCS; principal; 2016-06-30)
DX: K56.69 Other intestinal obstruction (principal); I46.8 Cardiac arrest due to other underlying condition; T40.4X2A Poisoning by other synthetic narcotics, intentional self-harm, initial encounter; T42.6X2A Poisoning by other antiepileptic and sedative-hypnotic drugs, intentional self-harm, initial encounter; Y92.231 Patient bathroom in hospital as the place of occurrence of the external cause; F11.20 Opioid dependence, uncomplicated; E43 Unspecified severe protein-calorie malnutrition; Z68.1 Body mass index [BMI] 19.9 or less, adult; N17.9 Acute kidney failure, unspecified; F32.9 Major depressive disorder, single episode, unspecified; F41.1 Generalized anxiety disorder; E87.6 Hypokalemia; G89.4 Chronic pain syndrome; E03.9 Hypothyroidism, unspecified; D64.9 Anemia, unspecified; Z98.84 Bariatric surgery status; Z86.718 Personal history of other venous thrombosis and embolism; Z90.49 Acquired absence of other specified parts of digestive tract; Z90.711 Acquired absence of uterus with remaining cervical stump
CPT/HCPCS: 70450; 71010; 74000; 74020; 74177; 80048; 80053; 80306 90; 81003; 82948; 83605; 83690; 84134; 84702; 85025; 85027; 85610; 85730; 92950; 93005; 94799; 99281; 99284; 99285; J0572; J0574; J1100; J1200; J1650; J2270; J2310; J2405; J3010; J3480; J7030; S0028

== ENCOUNTER 2016-09-25 00:43 | Observation (INO) | payer OTHER ==
[~2016-09-25] VITALS: Ht 160 cm; Wt 55.4 kg
[~2016-09-25 00:43] MED LIST changes: +CYMBALTA20 MG PO; +LEVOTHYROXINE100 MC1 IV; +ONDANSETRON4 MG/2 ML IV; +PAMELOR25 MG PO
[2016-09-25 02:20] LABS: HEMATOCRIT 35.6 % (36.0-46.0); MCH 29.1 PG (29.0-34.0); MCHC 33.4 G/DL (30.0-36.0); MEAN PLAT.VOLUME 8.9 uM^3 (9.5-12.4); PLATELET COUNT 256 K/uL (156-360); RBC DIS.WIDTH-CV 13.5 % (11.8-14.6); RBC DIS.WIDTH-SD 42.6 % (39-53); RED BLOOD COUNT 4.09 M/uL (3.80-5.20); WHITE BLOOD COUNT 6.9 K/uL (4.1-10.2)
[2016-09-25 02:31] LABS: CHLORIDE 111 mEq/L (99-109); POTASSIUM 2.8 mEq/L (3.7-5.4)
[2016-09-25 02:32] LABS: SODIUM 138 mEq/L (136-147)
[2016-09-25 02:34] LABS: GLUCOSE 75 mg/dL (70-99)
[2016-09-25 02:35] LABS: ANION GAP 10 MEQ/L (2-14)
[2016-09-25 02:36] LABS: TOTAL BILIRUBIN 0.3 mg/dL (0.0-1.0)
[2016-09-25 02:37] LABS: ALKALINE PHOSPHATASE 86 IU/L (3-129); GFR ESTIMATE (CALCULATED) 45 mL/min/
[2016-09-25 02:39] LABS: UREA NITROGEN (BUN) 10 mg/dL (9-23)
[2016-09-25 02:48] LABS: QUANTITATIVE HCG < 4.0 MIU/ML
[2016-09-25 03:32] LABS: ADD MIUA? NO; BILIRUBIN NEGATIVE; BLOOD NEGATIVE; COLOR YELLOW ((YELLOW)); GLUCOSE (STRIP) NEGATIVE; KETONES NEGATIVE; LEUKOCYTES NEGATIVE; NITRITE NEGATIVE; PROTEIN (STRIP) NEGATIVE; UCUL ADDED? NO; UROBILINOGEN 0.2 MG/DL (0.2-1.0)
[2016-09-25 05:11] LABS: LIPASE 18 U/L (1.0-51.0)
[2016-09-25 08:42] LABS: MAGNESIUM 1.9 mg/dl (1.3-2.7)
[2016-09-25 08:45] VITALS: BP 126/79
[2016-09-25 12:00] VITALS: BP 121/82
[2016-09-25] MEDS ORDERED: SUBOXONE 8 MG-1 EAC2 SL (13:37)
[2016-09-25] MEDS ORDERED: XARELTO20 MG PO ×2 (13:54→16:40)
[2016-09-25 14:19] LABS: METH RESISTANT S AUREUS PCR POSITIVE (NEGATIVE)
[2016-09-25 14:23] LABS: PROBE CHECK PASS
[2016-09-25 15:08] LABS: ANION GAP 4 MEQ/L (2-14); CHLORIDE 117 MEQ/L (99-109); GFR ESTIMATE (CALCULATED) 45 mL/min/; GLUCOSE 90 mg/dL (70-99); SAMPLE HEMOLYSIS CHECK 0; SAMPLE ICTERIC CHECK 0; SAMPLE LIPEMIA CHECK 0; SODIUM 142 MEQ/L (136-147); UREA NITROGEN (BUN) 8 mg/dL (9-23)
[2016-09-25 15:10] LABS: POTASSIUM 3.5 MEQ/L (3.7-5.4)
[2016-09-25] MEDS ORDERED: ZOLPIDEM TARTRAT5 MG PO (15:13)
[2016-09-25] MEDS ORDERED: LIDOCAINE HCL35 GM TP (15:13)
[2016-09-25] MEDS ORDERED: LEVO-T125 MCG PO (15:14)
[2016-09-25] MEDS ORDERED: ERGOCALCIF50000 UNIT PO (15:14)
[2016-09-25] MEDS ORDERED: CALCIUM500 M4 PO (15:15)
[2016-09-25] MEDS ORDERED: FLINTSTONES1 EACH PO (15:15)
[2016-09-25 16:00] VITALS: BP 139/82
[2016-09-25 20:36] VITALS: BP 122/80
[2016-09-26 06:38] LABS: EOSINOPHIL (%) 0 % (0-5); HEMATOCRIT 32.4 % (36.0-46.0); IMMATURE GRANULOCYTE (%) 0.2 % (0.0-0.7); INSTRUMENT ABS NEUTROPHIL CT 3.2 K/uL; LYMPHOCYTE COUNT 1.5 K/uL (1.0-2.8); MCH 29.6 PG (29.0-34.0); MCV 89.5 FL (83-99); MONOCYTE (%) 8.1 % (3-12); MONOCYTE COUNT 0.4 K/uL (0-0.8); NEUTROPHIL COUNT 3.2 K/uL (1.8-6.4); RBC DIS.WIDTH-CV 13.6 % (11.8-14.6); RBC DIS.WIDTH-SD 44.3 % (39-53); RED BLOOD COUNT 3.62 M/uL (3.80-5.20); WHITE BLOOD COUNT 5.2 K/uL (4.1-10.2)
[2016-09-26 06:55] LABS: ALKALINE PHOSPHATASE 66 IU/L (3-129); ANION GAP 7 MEQ/L (2-14); CHLORIDE 114 MEQ/L (99-109); GFR ESTIMATE (CALCULATED) 50 mL/min/; GLUCOSE 84 mg/dL (70-99); POTASSIUM 3.3 MEQ/L (3.7-5.4); SAMPLE HEMOLYSIS CHECK 0; SAMPLE ICTERIC CHECK 0; SAMPLE LIPEMIA CHECK 0; SODIUM 140 MEQ/L (136-147); TOTAL BILIRUBIN 0.2 MG/DL (0.0-1.0); UREA NITROGEN (BUN) 9 mg/dL (9-23)
[2016-09-26 07:14] VITALS: BP 118/70
[2016-09-26 08:35] LABS: ANISOCYTOSIS 1+; MEAN PLAT.VOLUME 9.9 uM^3 (9.5-12.4); PLAT.SUFFICIENCY ADEQUATE; PLATELET COUNT 179 K/uL (156-360)
[2016-09-26 11:41] VITALS: BP 118/76
== END 2016-09-26 15:48 | disposition home or self-care (01) ==
LOC: EME 00:43 → 5WEST 07:38 → EDOF 07:38 → 5WEST 08:30
PROVIDERS: Hospitalist
DX: R10.9 Unspecified abdominal pain (principal); E87.6 Hypokalemia; R11.2 Nausea with vomiting, unspecified; R19.7 Diarrhea, unspecified; E03.9 Hypothyroidism, unspecified; G89.4 Chronic pain syndrome; D64.9 Anemia, unspecified; Z86.718 Personal history of other venous thrombosis and embolism; Z79.01 Long term (current) use of anticoagulants; E86.0 Dehydration; F32.9 Major depressive disorder, single episode, unspecified; J45.909 Unspecified asthma, uncomplicated; Z98.84 Bariatric surgery status
CPT/HCPCS: 74177; 80048 91; 80053; 81003; 83690; 83735; 84702; 85025; 85027; 87081; 87493; 87641; 99281; 99285; G0378; J0574; J1200; J2270; J2405; J3010; J3480; J7030

== ENCOUNTER 2016-10-21 17:35 | Emergency (ER) | payer OTHER ==
[~2016-10-21] VITALS: Ht 160 cm; Wt 56.3 kg
[~2016-10-21 17:35] MED LIST changes: +CALCIUM500 M4 PO; +LIDOCAINE HCL35 GM TP; +SUBOXONE 8 MG-1 EAC2 SL; +ZOLPIDEM TARTRAT5 MG PO
[2016-10-21 19:13] LABS: BILIRUBIN NEGATIVE; BLOOD NEGATIVE; COLOR YELLOW ((YELLOW)); GLUCOSE (STRIP) NEGATIVE; KETONES NEGATIVE; LEUKOCYTES NEGATIVE; NITRITE NEGATIVE; PROTEIN (STRIP) 30; SPECIFIC GRAVITY 1.019 (1.000-1.030); UROBILINOGEN 0.2 MG/DL (0.2-1.0)
[2016-10-21 19:14] LABS: ADD MIUA? NO; UCUL ADDED? NO
[2016-10-21 19:31] LABS: HEMATOCRIT 39.7 % (36.0-46.0); MCH 28.5 PG (29.0-34.0); MCHC 32.5 G/DL (30.0-36.0); MCV 87.6 FL (83-99); MEAN PLAT.VOLUME 9.1 uM^3 (9.5-12.4); PLATELET COUNT 206 K/uL (156-360); RBC DIS.WIDTH-CV 12.8 % (11.8-14.6); RBC DIS.WIDTH-SD 41.1 % (39-53); WHITE BLOOD COUNT 6.5 K/uL (4.1-10.2)
[2016-10-21 19:37] LABS: RED BLOOD COUNT 4.53 M/uL (3.80-5.20)
[2016-10-21 19:41] LABS: CHLORIDE 111 mEq/L (99-109); POTASSIUM 3.1 mEq/L (3.7-5.4); SODIUM 140 mEq/L (136-147)
[2016-10-21 19:43] LABS: GLUCOSE 71 mg/dL (70-99)
[2016-10-21 19:44] LABS: ANION GAP 10 MEQ/L (2-14)
[2016-10-21 19:45] LABS: TOTAL BILIRUBIN 0.3 mg/dL (0.0-1.0)
[2016-10-21 19:46] LABS: ALKALINE PHOSPHATASE 81 IU/L (3-129)
[2016-10-21 19:47] LABS: GFR ESTIMATE (CALCULATED) 50 mL/min/
[2016-10-21 19:48] LABS: UREA NITROGEN (BUN) 16 mg/dL (9-23)
[2016-10-21 19:59] LABS: QUANTITATIVE HCG < 4.0 MIU/ML
[2016-10-21 22:55] VITALS: BP 145/100
== END 2016-10-21 22:56 | disposition home or self-care (01) ==
LOC: EME 17:35
DX: R10.9 Unspecified abdominal pain (principal); G89.29 Other chronic pain; J45.909 Unspecified asthma, uncomplicated
CPT/HCPCS: 74177; 80053; 81003; 83690; 84702; 85027; 99281; 99285; J2270; J2405; J7030

== ENCOUNTER 2016-10-23 15:33 | Emergency (ER) | payer OTHER ==
[~2016-10-23] VITALS: Ht 160 cm; Wt 56.6 kg
[2016-10-23 17:11] LABS: RED BLOOD COUNT 4.52 M/uL (3.80-5.20); WHITE BLOOD COUNT 8.5 K/uL (4.1-10.2)
[2016-10-23 17:12] LABS: HEMATOCRIT 39.4 % (36.0-46.0); MCH 28.5 PG (29.0-34.0); MCHC 32.7 G/DL (30.0-36.0); MCV 87.2 FL (83-99); MEAN PLAT.VOLUME 9.3 uM^3 (9.5-12.4); PLATELET COUNT 217 K/uL (156-360)
[2016-10-23 17:20] LABS: CHLORIDE 109 mEq/L (99-109); POTASSIUM 2.8 mEq/L (3.7-5.4); SODIUM 139 mEq/L (136-147)
[2016-10-23 17:23] LABS: ANION GAP 12 MEQ/L (2-14); GLUCOSE 92 mg/dL (70-99)
[2016-10-23 17:24] LABS: TOTAL BILIRUBIN 0.3 mg/dL (0.0-1.0)
[2016-10-23 17:26] LABS: ALKALINE PHOSPHATASE 71 IU/L (3-129); GFR ESTIMATE (CALCULATED) > 59 mL/min/
[2016-10-23 17:27] LABS: DIRECT BILIRUBIN 0.2 mg/dL (0.0-0.3); UREA NITROGEN (BUN) 14 mg/dL (9-23)
[2016-10-23 17:29] LABS: LIPASE 12 U/L (1.0-51.0)
[2016-10-23 17:40] LABS: ADD MIUA? NO; BILIRUBIN NEGATIVE; BLOOD NEGATIVE; COLOR YELLOW ((YELLOW)); GLUCOSE (STRIP) NEGATIVE; KETONES NEGATIVE; LEUKOCYTES NEGATIVE; NITRITE NEGATIVE; PROTEIN (STRIP) 30; SPECIFIC GRAVITY 1.017 (1.000-1.030); UCUL ADDED? NO; UROBILINOGEN 0.2 MG/DL (0.2-1.0)
[2016-10-23] MEDS ORDERED: ZOFRAN4 MG PO (19:07)
[2016-10-23 19:30] VITALS: BP 145/93
== END 2016-10-23 20:03 | disposition home or self-care (01) ==
LOC: EME 15:33
PROVIDERS: Emergency Medicine
DX: E86.0 Dehydration (principal); R10.9 Unspecified abdominal pain; R11.2 Nausea with vomiting, unspecified; R19.7 Diarrhea, unspecified; Z90.710 Acquired absence of both cervix and uterus; Z98.84 Bariatric surgery status; E03.9 Hypothyroidism, unspecified; Z86.711 Personal history of pulmonary embolism; Z86.718 Personal history of other venous thrombosis and embolism; Z79.01 Long term (current) use of anticoagulants
CPT/HCPCS: 80048; 80076; 81003; 83690; 85027; 99281; 99284; J0780; J2270; J2405; J7030

== ENCOUNTER 2016-10-26 22:27 | Observation (INO) | payer OTHER ==
[~2016-10-26] VITALS: Ht 160 cm; Wt 59.0 kg
[2016-10-26 23:06] LABS: HEMATOCRIT 39.2 % (36.0-46.0); MCH 28.7 PG (29.0-34.0); MCHC 31.9 G/DL (30.0-36.0); MCV 89.9 FL (83-99); MEAN PLAT.VOLUME 9.2 uM^3 (9.5-12.4); PLATELET COUNT 222 K/uL (156-360); RBC DIS.WIDTH-CV 13.2 % (11.8-14.6); RBC DIS.WIDTH-SD 42.8 % (39-53); RED BLOOD COUNT 4.36 M/uL (3.80-5.20); WHITE BLOOD COUNT 7.4 K/uL (4.1-10.2)
[2016-10-26 23:41] LABS: CHLORIDE 115 mEq/L (99-109); POTASSIUM 3.1 mEq/L (3.7-5.4); SODIUM 143 mEq/L (136-147)
[2016-10-26 23:43] LABS: GLUCOSE 69 mg/dL (70-99)
[2016-10-26 23:45] LABS: ANION GAP 8 MEQ/L (2-14); TOTAL BILIRUBIN 0.3 mg/dL (0.0-1.0)
[2016-10-26 23:47] LABS: ALKALINE PHOSPHATASE 73 IU/L (3-129); GFR ESTIMATE (CALCULATED) 42 mL/min/
[2016-10-26 23:48] LABS: UREA NITROGEN (BUN) 11 mg/dL (9-23)
[2016-10-27 02:32] LABS: QUANTITATIVE HCG < 4.0 MIU/ML
[2016-10-27 03:56] LABS: ADD MIUA? NO; BILIRUBIN NEGATIVE; BLOOD NEGATIVE; COLOR STRAW ((YELLOW)); GLUCOSE (STRIP) NEGATIVE; KETONES NEGATIVE; LEUKOCYTES NEGATIVE; NITRITE NEGATIVE; PROTEIN (STRIP) NEGATIVE; SPECIFIC GRAVITY 1.005 (1.000-1.030); UCUL ADDED? NO; UROBILINOGEN 0.2 MG/DL (0.2-1.0)
[2016-10-27] MEDS ORDERED: ZOFRAN4 MG PO (09:22)
[2016-10-27 12:20] VITALS: BP 129/80
[2016-10-27 13:03] VITALS: BP 126/81
[2016-10-27 15:42] VITALS: BP 134/81
[2016-10-28] VITALS: BP 128/76
[2016-10-28 05:00] VITALS: BP 145/83
[2016-10-28 06:16] LABS: ANION GAP 9 MEQ/L (2-14); CHLORIDE 112 MEQ/L (99-109); GFR ESTIMATE (CALCULATED) > 59 mL/min/; GLUCOSE 79 mg/dL (70-99); POTASSIUM 3.3 MEQ/L (3.7-5.4); SAMPLE HEMOLYSIS CHECK 0; SAMPLE ICTERIC CHECK 0; SAMPLE LIPEMIA CHECK 0; SODIUM 143 MEQ/L (136-147); UREA NITROGEN (BUN) 7 mg/dL (9-23)
[2016-10-28 07:56] VITALS: BP 126/73
[2016-10-28] MEDS ORDERED: CIPRO500 MG PO (10:57)
[2016-10-28] MEDS ORDERED: FLAGYL500 MG PO (10:57)
[2016-10-28] MEDS ORDERED: PERCOCET 5/31 TABLET PO (10:57)
== END 2016-10-28 13:09 | disposition home or self-care (01) ==
LOC: EME 22:27 → 5WEST 10-27 09:10 → EDOF 10-27 09:10 → 5WEST 10-27 12:16
PROVIDERS: Internal Medicine
DX: R10.9 Unspecified abdominal pain (principal); N17.9 Acute kidney failure, unspecified; R19.7 Diarrhea, unspecified; R11.2 Nausea with vomiting, unspecified; E03.9 Hypothyroidism, unspecified; G89.4 Chronic pain syndrome; D53.9 Nutritional anemia, unspecified; Z86.718 Personal history of other venous thrombosis and embolism; Z79.01 Long term (current) use of anticoagulants; Z86.711 Personal history of pulmonary embolism; Z98.84 Bariatric surgery status; Z82.49 Family history of ischemic heart disease and other diseases of the circulatory system; Z83.3 Family history of diabetes mellitus; Z88.6 Allergy status to analgesic agent; Z88.5 Allergy status to narcotic agent; Z88.8 Allergy status to other drugs, medicaments and biological substances
CPT/HCPCS: 74176; 80048; 80053; 81003; 84702; 85027; 87040; 87177; 87493; 87506; G0378; J0744; J2270; J2405; J3480; J7030; S0028; S0030

== ENCOUNTER 2016-11-02 20:38 | Emergency (ER) | payer OTHER ==
[~2016-11-02] VITALS: Ht 160 cm; Wt 57.3 kg
[~2016-11-02 20:38] MED LIST changes: +FLAGYL500 MG PO
[2016-11-02 22:08] LABS: MCH 29.2 PG (29.0-34.0); MCHC 31.4 G/DL (30.0-36.0); MCV 93.1 FL (83-99); MEAN PLAT.VOLUME 9.4 uM^3 (9.5-12.4); PLATELET COUNT 175 K/uL (156-360); RBC DIS.WIDTH-CV 13.1 % (11.8-14.6); RBC DIS.WIDTH-SD 44.1 % (39-53); RED BLOOD COUNT 4.62 M/uL (3.80-5.20); WHITE BLOOD COUNT 7.3 K/uL (4.1-10.2)
[2016-11-02 22:46] LABS: CHLORIDE 117 mEq/L (99-109); POTASSIUM 3.6 mEq/L (3.7-5.4); SODIUM 143 mEq/L (136-147)
[2016-11-02 22:48] LABS: GLUCOSE 67 mg/dL (70-99)
[2016-11-02 22:49] LABS: ANION GAP 11 MEQ/L (2-14)
[2016-11-02 22:51] LABS: ALKALINE PHOSPHATASE 73 IU/L (3-129); TOTAL BILIRUBIN 0.2 mg/dL (0.0-1.0)
[2016-11-02 22:52] LABS: GFR ESTIMATE (CALCULATED) 42 mL/min/
[2016-11-02 22:53] LABS: UREA NITROGEN (BUN) 8 mg/dL (9-23)
[2016-11-02 23:46] LABS: ADD MIUA? YES; BILIRUBIN NEGATIVE; BLOOD NEGATIVE; COLOR YELLOW ((YELLOW)); GLUCOSE (STRIP) NEGATIVE; KETONES NEGATIVE; LEUKOCYTES NEGATIVE; NITRITE NEGATIVE; PROTEIN (STRIP) 100; SPECIFIC GRAVITY 1.019 (1.000-1.030); UROBILINOGEN 0.2 MG/DL (0.2-1.0)
[2016-11-03 00:23] LABS: RED BLOOD CELLS NONE SEEN /HPF (0-5)
[2016-11-03 00:24] LABS: BACTERIA 1+ /HPF; CALCIUM OXALATE CRYSTALS 3+ /HPF; CASTS PRESENT /LPF; CRYSTALS PRESENT; EPITHELIAL CELLS 1+ /HPF; HYALINE CASTS 0-5 /LPF; MUCUS NONE SEEN /LPF; UCUL ADDED? NO; WHITE BLOOD CELLS NONE SEEN /HPF (0-5)
[2016-11-03 00:49] VITALS: BP 129/89
== END 2016-11-03 01:00 | disposition home or self-care (01) ==
LOC: EME 20:38
DX: R10.31 Right lower quadrant pain (principal); E86.0 Dehydration; Z98.84 Bariatric surgery status; E03.9 Hypothyroidism, unspecified; Z86.718 Personal history of other venous thrombosis and embolism; Z79.01 Long term (current) use of anticoagulants
CPT/HCPCS: 74177; 80053; 81003; 85027; 99281; 99285; J1200; J1885; J2270; J2405; J7030

== ENCOUNTER 2016-11-06 22:06 | Emergency (ER) | payer OTHER ==
[~2016-11-06] VITALS: Ht 160 cm; Wt 60.5 kg
[2016-11-06 23:23] LABS: BILIRUBIN NEGATIVE; BLOOD NEGATIVE; COLOR YELLOW ((YELLOW)); GLUCOSE (STRIP) NEGATIVE; KETONES NEGATIVE; LEUKOCYTES NEGATIVE; NITRITE NEGATIVE; PROTEIN (STRIP) 30; SPECIFIC GRAVITY 1.017 (1.000-1.030); UROBILINOGEN 0.2 MG/DL (0.2-1.0)
[2016-11-06 23:28] LABS: ADD MIUA? NO
[2016-11-06] MEDS ORDERED: CLONIDINE HCL0.1 MG PO (23:41)
[2016-11-06 23:43] LABS: EOSINOPHIL (%) 0.1 % (0-5); HEMATOCRIT 38.6 % (36.0-46.0); IMMATURE GRANULOCYTE (%) 0.3 % (0.0-0.7); INSTRUMENT ABS NEUTROPHIL CT 5.2 K/uL; LYMPHOCYTE COUNT 1.3 K/uL (1.0-2.8); MCH 28.7 PG (29.0-34.0); MCHC 31.6 G/DL (30.0-36.0); MCV 90.8 FL (83-99); MEAN PLAT.VOLUME 10.4 uM^3 (9.5-12.4); MONOCYTE (%) 5.3 % (3-12); MONOCYTE COUNT 0.4 K/uL (0-0.8); NEUTROPHIL (%) 74.7 % (45-76); NEUTROPHIL COUNT 5.2 K/uL (1.8-6.4); PLATELET COUNT 175 K/uL (156-360); RBC DIS.WIDTH-CV 13.2 % (11.8-14.6); RBC DIS.WIDTH-SD 43.7 % (39-53); RED BLOOD COUNT 4.25 M/uL (3.80-5.20)
[2016-11-06 23:49] LABS: CHLORIDE 113 mEq/L (99-109); POTASSIUM 3.4 mEq/L (3.7-5.4); SODIUM 140 mEq/L (136-147)
[2016-11-06 23:51] LABS: GLUCOSE 55 mg/dL (70-99)
[2016-11-06 23:52] LABS: ANION GAP 9 MEQ/L (2-14)
[2016-11-06 23:53] LABS: TOTAL BILIRUBIN 0.2 mg/dL (0.0-1.0)
[2016-11-06 23:55] LABS: ALKALINE PHOSPHATASE 61 IU/L (3-129); GFR ESTIMATE (CALCULATED) 54 mL/min/
[2016-11-06 23:56] LABS: UREA NITROGEN (BUN) 11 mg/dL (9-23)
[2016-11-07] MEDS ORDERED: BENTYL20 MG PO (01:03)
[2016-11-07 02:51] VITALS: BP 125/82
[2016-11-07 03:00] LABS: POINT-OF-CARE METER ID UU13113800
== END 2016-11-07 02:51 | disposition home or self-care (01) ==
LOC: EME 22:06
PROVIDERS: Physician Assistant
DX: G89.29 Other chronic pain (principal); R10.9 Unspecified abdominal pain; K52.9 Noninfective gastroenteritis and colitis, unspecified; E16.2 Hypoglycemia, unspecified; E83.51 Hypocalcemia; E86.0 Dehydration; Z98.84 Bariatric surgery status; E03.9 Hypothyroidism, unspecified; Z90.49 Acquired absence of other specified parts of digestive tract; Z88.6 Allergy status to analgesic agent; Z86.711 Personal history of pulmonary embolism
CPT/HCPCS: 74177; 80053; 81003; 82948; 83605; 85025; 99281; 99285; J2405; J7030

== ENCOUNTER 2016-11-28 21:08 | Emergency (ER) | payer OTHER ==
[~2016-11-28] VITALS: Ht 160 cm; Wt 62.2 kg
[~2016-11-28 21:08] MED LIST changes: +BENTYL20 MG PO; +CLONIDINE HCL0.1 MG PO
[2016-11-28 22:22] VITALS: BP 133/89
== END 2016-11-28 22:23 | disposition home or self-care (01) ==
LOC: EME 21:08
DX: R10.9 Unspecified abdominal pain (principal); E03.9 Hypothyroidism, unspecified; Z98.84 Bariatric surgery status; Z86.711 Personal history of pulmonary embolism; Z88.6 Allergy status to analgesic agent; Z88.5 Allergy status to narcotic agent
CPT/HCPCS: 99281; 99283

== ENCOUNTER 2016-12-19 14:17 | Emergency (ER) | payer OTHER ==
[~2016-12-19] VITALS: Ht 160 cm; Wt 63.3 kg
[2016-12-19 17:05] LABS: HEMATOCRIT 35.4 % (36.0-46.0); MCH 28.6 PG (29.0-34.0); MCHC 32.5 G/DL (30.0-36.0); MCV 88.1 FL (83-99); MEAN PLAT.VOLUME 9.1 uM^3 (9.5-12.4); PLATELET COUNT 151 K/uL (156-360); RBC DIS.WIDTH-CV 12.4 % (11.8-14.6); RBC DIS.WIDTH-SD 40.3 % (39-53); RED BLOOD COUNT 4.02 M/uL (3.80-5.20); WHITE BLOOD COUNT 5.3 K/uL (4.1-10.2)
[2016-12-19 17:14] LABS: CHLORIDE 105 mEq/L (99-109); POTASSIUM 3.9 mEq/L (3.7-5.4); SODIUM 136 mEq/L (136-147)
[2016-12-19 17:16] LABS: GLUCOSE 117 mg/dL (70-99)
[2016-12-19 17:17] LABS: ANION GAP 7 MEQ/L (2-14)
[2016-12-19 17:18] LABS: TOTAL BILIRUBIN 0.4 mg/dL (0.0-1.0)
[2016-12-19 17:19] LABS: ALKALINE PHOSPHATASE 76 IU/L (3-129)
[2016-12-19 17:20] LABS: GFR ESTIMATE (CALCULATED) 54 mL/min/
[2016-12-19 17:21] LABS: UREA NITROGEN (BUN) 10 mg/dL (9-23)
[2016-12-19 17:23] LABS: LIPASE 7 U/L (1.0-51.0)
[2016-12-19 17:29] LABS: QUANTITATIVE HCG < 4.0 MIU/ML
[2016-12-19 18:04] LABS: ADD MIUA? NO; BILIRUBIN NEGATIVE; BLOOD NEGATIVE; COLOR YELLOW ((YELLOW)); GLUCOSE (STRIP) NEGATIVE; KETONES NEGATIVE; LEUKOCYTES NEGATIVE; NITRITE NEGATIVE; PROTEIN (STRIP) NEGATIVE; SPECIFIC GRAVITY 1.018 (1.000-1.030); UCUL ADDED? NO; UROBILINOGEN 0.2 MG/DL (0.2-1.0)
[2016-12-19 18:49] VITALS: BP 137/88
== END 2016-12-19 18:49 | disposition home or self-care (01) ==
LOC: EME 14:17
PROVIDERS: Physician Assistant Medical
DX: R10.31 Right lower quadrant pain (principal)
CPT/HCPCS: 80053; 81003; 83690; 84702; 85027; 99281; 99284

== ENCOUNTER 2017-01-06 19:05 | Emergency (ER) | payer OTHER ==
[~2017-01-06] VITALS: Ht 160 cm; Wt 63.2 kg
[2017-01-06 20:10] LABS: HEMATOCRIT 36.8 % (36.0-46.0); MCH 28.7 PG (29.0-34.0); MCHC 32.3 G/DL (30.0-36.0); MCV 88.9 FL (83-99); MEAN PLAT.VOLUME 9.2 uM^3 (9.5-12.4); PLATELET COUNT 136 K/uL (156-360); RBC DIS.WIDTH-CV 12.7 % (11.8-14.6); RBC DIS.WIDTH-SD 41.3 % (39-53); RED BLOOD COUNT 4.14 M/uL (3.80-5.20); WHITE BLOOD COUNT 4.5 K/uL (4.1-10.2)
[2017-01-06 20:20] LABS: CHLORIDE 107 mEq/L (99-109); POTASSIUM 3.6 mEq/L (3.7-5.4); SODIUM 140 mEq/L (136-147)
[2017-01-06 20:22] LABS: GLUCOSE 91 mg/dL (70-99)
[2017-01-06 20:23] LABS: ANION GAP 13 MEQ/L (2-14)
[2017-01-06 20:24] LABS: TOTAL BILIRUBIN 0.3 mg/dL (0.0-1.0)
[2017-01-06 20:25] LABS: ALKALINE PHOSPHATASE 80 IU/L (3-129)
[2017-01-06 20:26] LABS: GFR ESTIMATE (CALCULATED) 50 mL/min/
[2017-01-06 20:27] LABS: UREA NITROGEN (BUN) 14 mg/dL (9-23)
[2017-01-06 20:35] LABS: QUANTITATIVE HCG < 4.0 MIU/ML
[2017-01-06 21:27] LABS: ADD MIUA? YES; BILIRUBIN NEGATIVE; BLOOD NEGATIVE; COLOR YELLOW ((YELLOW)); GLUCOSE (STRIP) NEGATIVE; KETONES NEGATIVE; LEUKOCYTES NEGATIVE; NITRITE NEGATIVE; PROTEIN (STRIP) 30; SPECIFIC GRAVITY 1.026 (1.000-1.030); UROBILINOGEN 0.2 MG/DL (0.2-1.0)
[2017-01-06 21:56] LABS: BACTERIA NONE SEEN /HPF; CALCIUM OXALATE CRYSTALS 3+ /HPF; EPITHELIAL CELLS RARE /HPF; MUCUS NONE SEEN /LPF; RED BLOOD CELLS 0-5 /HPF (0-5); UCUL ADDED? NO; WHITE BLOOD CELLS 0-5 /HPF (0-5)
[2017-01-06] MEDS ORDERED: KEFLEX500 MG PO (22:54)
[2017-01-06 23:08] VITALS: BP 109/74
== END 2017-01-06 23:23 | disposition home or self-care (01) ==
LOC: EME 19:05
DX: L03.311 Cellulitis of abdominal wall (principal); J45.909 Unspecified asthma, uncomplicated; F32.9 Major depressive disorder, single episode, unspecified; F41.9 Anxiety disorder, unspecified; Z98.84 Bariatric surgery status; Z86.711 Personal history of pulmonary embolism; E03.9 Hypothyroidism, unspecified; Z88.8 Allergy status to other drugs, medicaments and biological substances
CPT/HCPCS: 74177; 80053; 81003; 84702; 85027; 99281; 99285; J2270; J7030

== ENCOUNTER 2017-02-05 17:49 | Emergency (ER) | payer OTHER ==
[~2017-02-05] VITALS: Ht 160 cm; Wt 64.7 kg
[~2017-02-05 17:49] MED LIST changes: +KEFLEX500 MG PO
[2017-02-05 19:09] VITALS: BP 102/67
== END 2017-02-05 19:10 | disposition home or self-care (01) ==
LOC: EME 17:49
DX: T81.89XA Other complications of procedures, not elsewhere classified, initial encounter (principal); Z48.89 Encounter for other specified surgical aftercare; Y83.8 Other surgical procedures as the cause of abnormal reaction of the patient, or of later complication, without mention of misadventure at the time of the procedure; J45.909 Unspecified asthma, uncomplicated; E03.9 Hypothyroidism, unspecified; F41.9 Anxiety disorder, unspecified; F32.9 Major depressive disorder, single episode, unspecified; Z86.711 Personal history of pulmonary embolism; Z98.84 Bariatric surgery status; Z88.8 Allergy status to other drugs, medicaments and biological substances
CPT/HCPCS: 99281; 99284

== ENCOUNTER 2017-10-01 18:57 | Emergency (ER) | payer OTHER ==
[~2017-10-01] VITALS: Ht 160 cm; Wt 65.1 kg
[2017-10-01 19:34] LABS: HEMATOCRIT 41.1 % (36.0-46.0); HEMOGLOBIN 13.9 G/DL (11.9-15.5); MCHC 33.8 G/DL (30.0-36.0); MCV 94.5 FL (83-99); RBC DIS.WIDTH-CV 13.1 % (11.8-14.6); RBC DIS.WIDTH-SD 45.5 % (39-53); RED BLOOD COUNT 4.35 M/uL (3.80-5.20); WHITE BLOOD COUNT 5.6 K/uL (4.1-10.2)
[2017-10-01 19:42] LABS: ALBUMIN 3.6 g/dL (3.2-4.8)
[2017-10-01 19:43] LABS: CHLORIDE 105 mEq/L (99-109); POTASSIUM 3.4 mEq/L (3.7-5.4); SODIUM 138 mEq/L (136-147)
[2017-10-01 19:45] LABS: GLUCOSE 92 mg/dL (70-99); TOTAL PROTEIN 6.8 g/dL (6.4-8.3)
[2017-10-01 19:47] LABS: TOTAL BILIRUBIN 0.5 mg/dL (0.0-1.0)
[2017-10-01 19:48] LABS: ALKALINE PHOSPHATASE 95 IU/L (3-129)
[2017-10-01 19:49] LABS: CREATININE 1.3 mg/dL (0.6-1.3); GFR ESTIMATE (CALCULATED) 49 mL/min/
[2017-10-01 19:50] LABS: AST (GOT) 26 IU/L (2-34); UREA NITROGEN (BUN) 13 mg/dL (9-23)
[2017-10-01 19:51] LABS: ALT (GPT) 28 IU/L (3-49)
[2017-10-01 19:52] LABS: LIPASE 14 U/L (1.0-51.0)
[2017-10-01 20:10] LABS: HEMATOLOGY COMMENT 1 SN
[2017-10-01 20:11] LABS: PLATELET COUNT UNABLE TO REPORT K/uL (156-360)
[2017-10-01 21:21] LABS: APPEARANCE SL.HAZY ((CLEAR)); BILIRUBIN NEGATIVE; BLOOD NEGATIVE; COLOR YELLOW ((YELLOW)); GLUCOSE (STRIP) NEGATIVE; KETONES NEGATIVE; LEUKOCYTES NEGATIVE; NITRITE NEGATIVE; PROTEIN (STRIP) NEGATIVE; SPECIFIC GRAVITY 1.025 (1.000-1.030)
[2017-10-01 21:27] LABS: BACTERIA NONE SEEN /HPF; CALCIUM OXALATE CRYSTALS 4+ /HPF; EPITHELIAL CELLS 1+ /HPF; MUCUS TRACE /LPF; RED BLOOD CELLS NONE SEEN /HPF (0-5); UCUL ADDED? YES
[2017-10-01] MEDS ORDERED: ZOFRAN ODT4 MG PO (21:44)
[2017-10-01] MEDS ORDERED: BENTYL10 MG PO (21:44)
[2017-10-01 21:53] VITALS: BP 137/92
== END 2017-10-01 21:59 | disposition home or self-care (01) ==
LOC: EME 18:57
PROVIDERS: Physician Assistant
DX: R10.32 Left lower quadrant pain (principal); J45.909 Unspecified asthma, uncomplicated; F41.9 Anxiety disorder, unspecified; F32.9 Major depressive disorder, single episode, unspecified; Z79.01 Long term (current) use of anticoagulants; Z86.711 Personal history of pulmonary embolism; Z98.84 Bariatric surgery status; Z90.49 Acquired absence of other specified parts of digestive tract; Z90.711 Acquired absence of uterus with remaining cervical stump; Z88.6 Allergy status to analgesic agent; Z88.5 Allergy status to narcotic agent; Z88.8 Allergy status to other drugs, medicaments and biological substances
CPT/HCPCS: 74176; 80053; 81003; 83690; 85027; 87086; 99281; 99284; J3010